=== PATIENT | female | born 1980 | race Caucasian/White ===

== ENCOUNTER 2025-02-02 15:20 | Emergency (ER) | payer MEDICAID, SELFPAY ==
[2025-02-02 15:39] VITALS: BP 132/80; PULSE 108; RESP 26; TEMP 36.4; O2SAT 97; BMI 42.5
--- NOTE | 2025-02-02 15:52 | XR_ITS ---
Examination: PA lateral chest 2 views TECHNIQUE: Upright PA lateral chest 2 views Date and time: February 12, 2025 1555 hours Comparison July 05, 2018 INDICATIONS: Chest pain weakness beginning 2 days ago. FINDINGS: Normal heart size. Lungs are clear. The osseous structures are intact IMPRESSION: No active disease
--- NOTE | 2025-02-02 15:52 | EKG_ITS ---
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
--- NOTE | 2025-02-02 15:53 | PD.EDRME ---
Rapid Medical Screening Exam RME Arrival date/time: 02/02/25 15:20 44-year-old female with a history of hypothyroidism presents to the emergency room with a chief complaint of palpitations, chest pain, weakness x 3 days I have greeted and performed a focused initial assessment of this patient. A comprehensive ED assessment and evaluation of the patient, analysis of all test results, and completion of the medical decision making process will be conducted by additional ED providers. Chief Complaint: Anxiety Time Seen by Provider: 02/02/25 15:29 Vital signs: Vital Signs Temperature 97.5 F 02/02/25 15:39 Pulse Rate 108 H 02/02/25 15:39 Respiratory Rate 26 H 02/02/25 15:39 Blood Pressure 132/80 H 02/02/25 15:39 Pulse Oximetry (%) 97 02/02/25 15:39 Oxygen Delivery Method Room Air 02/02/25 15:39 Vital signs reviewed by provider: Yes
[2025-02-02 16:57] LABS: Basophils # (Auto) 0.1 Thou/mm3 (0.0-0.2); Basophils % (Auto) 1 % (0-2.5); Eosinophils # (Auto) 0.0 Thou/mm3 (0.0-0.5); Eosinophils % (Auto) 1 % (0-10); Hematocrit 27.7 % (36.0-46.0); Immature Granulocytes Auto 0.01 Thou/mm3 (0.00-0.00); Lymphocytes # (Auto) 0.5 Thou/mm3 (1.0-4.8); Lymphocytes % (Auto) 13 % (10-50); Mean Corpuscular HGB Conc 30.7 g/dl (31.0-37.0); Mean Corpuscular Hemoglobin 26.0 pg (25.0-35.0); Mean Corpuscular Volume 85 fL (80-100); Monocytes # (Auto) 0.2 Thou/mm3 (0.0-0.8); Monocytes % (Auto) 4 % (0-12); Neutrophils # (Auto) 3.1 Thou/mm3 (1.8-7.7); Neutrophils % (Auto) 80 % (37-80); Nucleated Red Blood Cell # 0.00 Thou/mm3 (0.00-0.00); Nucleated Red Blood Cell % 0 /100 WBC (0); Platelet Count 231 Thou/mm3 (140-440); RDW Standard Deviation 43.9 fL (36.4-46.3); Red Blood Count 3.27 Miln/mm3 (4.00-5.20); White Blood Count 3.8 Thou/mm3 (3.6-11.0)
[2025-02-02 16:58] LABS: Hemoglobin 8.5 g/dL (12.0-16.0)
[2025-02-02 17:10] LABS: INR 1.1 (0.9-1.3); Partial Thromboplastin Time 24.2 Seconds (22.0-36.0); Prothrombin Time 12.0 Seconds (9.0-12.2)
[2025-02-02 17:11] LABS: B-Type Natriuretic Peptide 41 pg/mL (0-100)
[2025-02-02 17:24] LABS: Alanine Aminotransferase 8 U/L (10-49); Albumin, Serum 3.9 gm/dL (3.5-5.0); Albumin/Globulin Ratio 1.4 (1.2-2.2); Alkaline Phosphatase 67 U/L (46-116); Anion Gap 13 (7-16); Aspartate Amino Transferase 18 U/L (0-34); BUN/Creatinine Ratio 9 Ratio (12-20); Bilirubin,Total 1.0 mg/dL (0.3-1.2); Blood Urea Nitrogen 9 mg/dL (9-23); Calcium 8.9 mg/dL (8.3-10.6); Calcium (Corrected) 9.0 mg/dL (8.5-10.1); Carbon Dioxide 24.1 mMol/L (20.0-31.0); Chloride 100 mMol/L (98-107); Creatinine (Component) 1.0 mg/dL (0.6-1.3); Estimated Creatinine Clearance 101.0 mL/min (>60); Globulin 2.7 gm/dL (2.3-3.5); Glucose 90 mg/dL (74-106); Magnesium 2.0 mg/dL (1.6-2.6); Osmolality,Calculated 272 (275-295); Potassium 2.9 mMol/L (3.4-5.1); Sodium 137 mMol/L (136-145); Total Protein 6.6 gm/dL (5.7-8.2); Troponin I < 0.020 ng/mL (0.0-0.045); eGFR > 60 See Note
[2025-02-02 18:17] LABS: Collection Type, Urine Clean Catch
[2025-02-02 18:40] LABS: Bilirubin,Urine Negative (Negative); Blood,Urine Negative (Negative); Clarity,Urine Clear (Clear/Hazy); Color,Urine Yellow (Lt Yel-Yel); Glucose, Urine Negative (Negative); Hyaline Casts,Urine < 1 /hpf (0-1); Ketones,Urine Trace (Negative); Leukocyte Esterase,Urine Positive (Negative); Nitrite,Urine Negative (Negative); PH,Urine 6.0 (5.0-7.0); Protein,Urine Trace (Neg - Trace); RBC,Urine 1 /hpf (0-3); Specific Gravity,Urine 1.024 (1.001-1.035); Squamous Epithelial Cell,Urine 10 /hpf (0-5); Urobilinogen,Urine 2.0 mg/dL (0.0-1.0); WBC,Urine 4 /hpf (0-5)
[2025-02-02 18:53] LABS: Amphetamine/Methamp Scrn,U Negative (Negative); Barbiturate Screen,Urine Negative (Negative); Benzodiazepines Screen,Urine Positive (Negative); Benzoylecgonine Screen, Ur Negative (Negative); Fentanyl Screen,Urine Negative (Negative); Opiate Screen,Urine Negative (Negative); THC Screen,Urine Negative (Negative)
--- NOTE | 2025-02-02 19:29 | PD.EDANX ---
ED Anxiety RME/HPI General Chief Complaint: Anxiety Stated Complaint: Very anxious, SOB Time Seen by Provider: 02/02/25 15:29 Arrival date/time: 02/02/25 15:20 RME / HPI RME / HPI narrative: 44-year-old female patient with significant history of hypothyroidism, morbid obesity, came in for evaluation regarding dyspnea on exertion, palpitation on exertion, generalized weakness, and chest discomfort. This been ongoing for the last 3 days. Severity of symptoms moderate. Patient denies any vomiting, denies any blood in the stool. Related Data Home Medications ?Medication ?Instructions ?Recorded ?Confirmed levetiracetam 500 mg tablet 500 mg PO BID #0 tabs 05/23/17 07/05/18 (Keppra) omeprazole 20 mg capsule,delayed 20 mg PO QDAY ##0 05/23/17 07/05/18 release sertraline 100 mg tablet (Zoloft) 150 mg PO HS #0 tabs 05/23/17 07/05/18 Previous Rx's ?Medication ?Instructions ?Recorded cyclobenzaprine 5 mg tablet 5 mg PO TID PRN muscle spasm #14 07/05/18 tabs clindamycin HCl 300 mg capsule 300 mg PO TID #30 caps 08/23/18 tramadol 50 mg tablet 50 mg PO Q6H #14 tabs 08/23/18 ferrous sulfate, dried 160 mg (50 160 mg PO TID #90 tabs 02/02/25 mg iron) tablet,extended release potassium chloride 20 mEq oral 20 meq PO QDAY #7 ea 02/02/25 packet Allergies Allergy/AdvReac Type Severity Reaction Status Date / Time codeine Allergy Severe RASH Verified 02/02/25 15:25 Sulfa (Sulfonamide Allergy Severe RASH Verified 02/02/25 15:25 Antibiotics) ciprofloxacin AdvReac Severe ABD PAIN, Verified 02/02/25 15:25 BLOATING ibuprofen AdvReac Severe CONTRAINDICATED Verified 02/02/25 15:25 DUE TO GASTRIC BYPASS Review of Systems Review of Systems Narrative Review of Systems: Review of system reviewed and within normal limits except mentioned in HPI ED Exam Narrative Physical exam: VITAL SIGNS: Reviewed. Physical exam was not done patient is already very upset does not want to be touch Course Quality Measures none Orders Category Date Time Status EKG (ED ONLY) *Do not use* NOW Care 02/02/25 15:52 Completed EKG (ED Only) Stat Exams 02/02/25 15:52 Draft XR chest 2V Stat Exams 02/02/25 15:52 Completed B-Type Natriuretic Peptide Stat Lab 02/02/25 16:44 Completed CBC Stat Lab 02/02/25 16:44 Completed Comprehensive Metabolic Panel Stat Lab 02/02/25 16:44 Completed Drug Screen,Urine Stat Lab 02/02/25 17:50 Completed Magnesium Stat Lab 02/02/25 16:44 Completed Partial Thromboplastin Time Stat Lab 02/02/25 16:44 Completed Prothrombin Time with INR Stat Lab 02/02/25 16:44 Completed Troponin I Stat Lab 02/02/25 16:44 Completed Urinalysis Stat Lab 02/02/25 17:50 Completed Potassium Chloride [K-Dur] Med 02/02/25 19:21 Discontinued 40 meq PO X1 ONE Vital Signs Vital signs: Vital Signs Temperature 97.5 F 02/02/25 15:39 Pulse Rate 108 H 02/02/25 15:39 Respiratory Rate 26 H 02/02/25 15:39 Blood Pressure 132/80 H 02/02/25 15:39 Pulse Oximetry (%) 97 02/02/25 15:39 Oxygen Delivery Method Room Air 02/02/25 15:39 Anxiety MDM Narrative MDM Narrative: 44-year-old female patient with significant history of hypothyroidism, morbid obesity, came in for evaluation regarding dyspnea on exertion, palpitation on exertion, generalized weakness, and chest discomfort. This been ongoing for the last 3 days. Severity of symptoms moderate. Patient denies any vomiting, denies any blood in the stool. Patient CBC showed hemoglobin of 8.5. Hematocrit of 27.7. Patient potassium was noted to be 2.9 urinalysis no UTI. Tested positive benzo. Patient chest x-ray came back with no acute pathology. EKG showed normal sinus rhythm, ventricular rate of 98 bpm, no ST segment elevation or depression noted. I discussed patient's finding of her CBC results which could be the reason for her dyspnea on exertion palpitation on exertion and chest discomfort that is related to her hemoglobin of 8.5. Patient is upset and does not believe that her symptoms is related to her hemoglobin of 8.5. I explained to her that there is no need to do emergency transfusion at this time because our cutoff is 7.0. Patient is more upset. I told her that I am going to send her home on iron supplement. Patient was also given potassium replacement for potassium of 2.9. Physical examination was not done since patient is upset and does not want to be touched. SHe told me that she wanted to be discharged right away. FARHAN Gallardo was with me during the entire conversation with the patient. She took her potassium replacement in the ED I discharged her on potassium 20 mEq daily for 7 days and ferrous sulfate 1 tablet 3 times daily for 30 days. Patient was also advised to closely follow-up with her PCP. In 1 to 2 days. Patient data External records reviewed:: None Clinical information provided by:: patient Social determinants that could affect healthcare access:: none Patient has the following chronic illnesses:: History of anxiety, history of anemia How is presenting disease/condition affected by chronic disease/condition?: exacerbated by Evaluation data The following diagnostics were reviewed and interpreted by me:: lab results, radiology exam(s) and EKG tracing(s) Lab and/or radiology exams considered but not ordered:: None Interpretation Summary: See results MDM Medications / Prescriptions Medications or Prescriptions considered but not ordered:: None Medication administrations:: Medication Administration History Discontinued Medications Potassium Chloride (Potassium Chloride 20 Meq Tabcr) 40 meq PO X1 ONE Stop: 02/02/25 19:22 Consultations Consultation(s) initiated? (list below): No Diagnosis Differential diagnosis anxiety: hyperventilation, panic disorder and other (Anemia, dyspnea exertion, palpitation) Most likely diagnosis given after review of the tests above:: Anemia, dyspnea on exertion, palpitation, anxiety Admission Indicated Admission indicated?: not indicated Admission Request Was there a request for admission?: No Disposition Plan Disposition Plan: Discharge Discharge Attestation Discharge Attestation: Patient condition: Stable Discharge Plan Plan Patient Disposition: HOME (Self Care) Discharge Disposition comment: Stable Prescriptions/Referrals Prescriptions/Med Rec: New ferrous sulfate, dried 160 mg (50 mg iron) tablet extended release 160 mg PO TID Qty: 90 0RF potassium chloride 20 mEq packet 20 meq PO QDAY Qty: 7 0RF No Action levetiracetam [Keppra] 500 MG tablet 500 mg PO BID Qty: 0 sertraline [Zoloft] 100 MG tablet 150 mg PO HS Qty: 0 omeprazole 20 MG capsule,delayed release(DR/EC) 20 mg PO QDAY Qty: 0 cyclobenzaprine 5 mg tablet 5 mg PO TID PRN (Reason: muscle spasm) Qty: 14 0RF clindamycin HCl 300 mg capsule 300 mg PO TID Qty: 30 0RF tramadol 50 mg tablet 50 mg PO Q6H Qty: 14 0RF Referrals: No Primary/Family,Physician [Primary Care Provider] - In 1 week Problem List Clinical Impression: Anemia, Palpitation, Hypokalemia Patient/Caregiver Discharge Instructions Discharge Activity: activity as tolerated Education Materials: Anemia Additional Instructions: Thank you for the opportunity for serving you today. You are stable for discharged . You are advised to: Follow-up with your PCP in 1 to 2 days Return to ED for worsening of symptoms Take medication as prescribed Print Language: Lao Stand Alone Forms: [facility] Info., Patient Portal Info Letter
[2025-02-02 19:35] VITALS: BP 149/77; PULSE 93; RESP 20; TEMP 36.8; O2SAT 100
== END 2025-02-02 20:04 | disposition home or self-care (01) ==
PROVIDERS: Nurse Practitioner Family; Emergency Provider Emergency Medicine
DX: D64.9 Anemia, unspecified (principal); R00.2 Palpitations; E87.6 Hypokalemia; R07.9 Chest pain, unspecified; R53.1 Weakness; R94.31 Abnormal electrocardiogram [ECG] [EKG]
CPT/HCPCS: 36415; 71046; 80053; 80307; 81001; 83735; 83880; 84484; 85025; 85610; 85730; 93005; 99284; A9270

== ENCOUNTER 2025-04-04 20:03 | Inpatient (IN) | payer MEDICAID, SELFPAY ==
[2025-04-04 20:04] VITALS: BP 128/62; PULSE 88; RESP 18; TEMP 36.4; O2SAT 97
--- NOTE | 2025-04-04 20:04 | PD.EDBACK ---
ED Back Injury Pain RME/HPI General Stated Complaint: FLANK PAIN Arrival date/time: 04/04/25 20:03 RME / HPI RME / HPI Narrative: See [facility] for Dr. Burch's HPI documentation. Related Data Home Medications ?Medication ?Instructions ?Recorded ?Confirmed levetiracetam 500 mg tablet 500 mg PO BID #0 tabs 05/23/17 07/05/18 (Keppra) omeprazole 20 mg capsule,delayed 20 mg PO QDAY ##0 05/23/17 07/05/18 release sertraline 100 mg tablet (Zoloft) 150 mg PO HS #0 tabs 05/23/17 07/05/18 Previous Rx's ?Medication ?Instructions ?Recorded cyclobenzaprine 5 mg tablet 5 mg PO TID PRN muscle spasm #14 07/05/18 tabs clindamycin HCl 300 mg capsule 300 mg PO TID #30 caps 08/23/18 tramadol 50 mg tablet 50 mg PO Q6H #14 tabs 08/23/18 ferrous sulfate, dried 160 mg (50 160 mg PO TID #90 tabs 02/02/25 mg iron) tablet,extended release potassium chloride 20 mEq oral 20 meq PO QDAY #7 ea 02/02/25 packet Allergies Allergy/AdvReac Type Severity Reaction Status Date / Time codeine Allergy Severe RASH Verified 02/02/25 15:25 Sulfa (Sulfonamide Allergy Severe RASH Verified 02/02/25 15:25 Antibiotics) ciprofloxacin AdvReac Severe ABD PAIN, Verified 02/02/25 15:25 BLOATING ibuprofen AdvReac Severe CONTRAINDICATED Verified 02/02/25 15:25 DUE TO GASTRIC BYPASS Review of Systems Review of Systems Systems Reviewed: All systems reviewed, normal except as documented Past Medical History Social History SMOKING STATUS: Current every day smoker ED Exam Narrative Physical exam: See [facility] for Dr. Burch's physical exam documentation. Course Quality Measures none Back Pain / Injury MDM Narrative [facility] Narrative:: This section includes all my notes and documentations, including HPI, PE, and ED course. Yosef Burch MD HPI: 45yo female BIBA from home here with ROS: All negative except as documented in HPI. Physical Exam: General: Alert and oriented. No acute distress when remaining still. Eyes: Conjunctivae and lids clear. ENT: No nasal congestion. Neck: Supple. Heart: RRR. Lungs: No respiratory distress. Good air movement. No rhonchi, wheezing, rales. Abdomen: Soft and nontender. Normal bowel sounds. No distension. No rebound or guarding. Back: No CVA tenderness. Skin: Warm and dry. Neuro: Alert and oriented X 3. I reviewed EMS notes. I reviewed all diagnostic test results. My interpretation of the EKG is My interpretation of the chest x-ray is My review of the CT report is Blood tests and urine tests At this point, diagnoses include Treatment here included Significant improvement Not yet done: I discussed the case with our hospitalist. About the presentation and exam and diagnostics and treatments here. And need of further care in the hospital. Will accept the patient. Not yet done: Based on my best medical judgment, made decision no further evaluation or treatment indicated at this time. Patient understands and agrees to the discharge instructions customized and printed, see below. Yosef Burch MD Patient data External records reviewed:: [facility] previous records (Per chart review, patient was seen here on for anemia.) Clinical information provided by:: patient Social determinants that could affect healthcare access:: none Patient has the following chronic illnesses:: none How is presenting disease/condition affected by chronic disease/condition?: no chronic disease Evaluation data The following diagnostics were reviewed and interpreted by me:: lab results and radiology exam(s) Lab and/or radiology exams considered but not ordered:: none Medications / Prescriptions Medications or Prescriptions considered but not ordered:: none Discharge Plan Prescriptions/Referrals Prescriptions/Med Rec: No Action levetiracetam [Keppra] 500 MG tablet 500 mg PO BID Qty: 0 sertraline [Zoloft] 100 MG tablet 150 mg PO HS Qty: 0 omeprazole 20 MG capsule,delayed release(DR/EC) 20 mg PO QDAY Qty: 0 cyclobenzaprine 5 mg tablet 5 mg PO TID PRN (Reason: muscle spasm) Qty: 14 0RF clindamycin HCl 300 mg capsule 300 mg PO TID Qty: 30 0RF tramadol 50 mg tablet 50 mg PO Q6H Qty: 14 0RF ferrous sulfate, dried 160 mg (50 mg iron) tablet extended release 160 mg PO TID Qty: 90 0RF potassium chloride 20 mEq packet 20 meq PO QDAY Qty: 7 0RF Patient/Caregiver Discharge Instructions Print Language: Niuean
--- NOTE | 2025-04-04 20:10 | PD.EDSOB ---
ED SOB =RME/HPI General Chief Complaint: General Adult/Misc Complain Stated Complaint: FLANK PAIN Time Seen by Provider: 04/04/25 20:26 Arrival date/time: 04/04/25 20:03 RME / HPI RME / HPI Narrative: See [facility] for Dr. Burch's HPI documentation. Related Data Home Medications ?Medication ?Instructions ?Recorded ?Confirmed levetiracetam 500 mg tablet 500 mg PO BID #0 tabs 05/23/17 07/05/18 (Keppra) omeprazole 20 mg capsule,delayed 20 mg PO QDAY ##0 05/23/17 07/05/18 release sertraline 100 mg tablet (Zoloft) 150 mg PO HS #0 tabs 05/23/17 07/05/18 Previous Rx's ?Medication ?Instructions ?Recorded cyclobenzaprine 5 mg tablet 5 mg PO TID PRN muscle spasm #14 07/05/18 tabs clindamycin HCl 300 mg capsule 300 mg PO TID #30 caps 08/23/18 tramadol 50 mg tablet 50 mg PO Q6H #14 tabs 08/23/18 ferrous sulfate, dried 160 mg (50 160 mg PO TID #90 tabs 02/02/25 mg iron) tablet,extended release potassium chloride 20 mEq oral 20 meq PO QDAY #7 ea 02/02/25 packet Allergies Allergy/AdvReac Type Severity Reaction Status Date / Time codeine Allergy Severe RASH Verified 02/02/25 15:25 Sulfa (Sulfonamide Allergy Severe RASH Verified 02/02/25 15:25 Antibiotics) ciprofloxacin AdvReac Severe ABD PAIN, Verified 02/02/25 15:25 BLOATING ibuprofen AdvReac Severe CONTRAINDICATED Verified 02/02/25 15:25 DUE TO GASTRIC BYPASS Review of Systems Review of Systems Systems Reviewed: All systems reviewed, normal except as documented ED Exam Narrative Physical exam: See [facility] for Dr. Burch's physical exam documentation. Course Course Course Narrative: CXR is ordered for determining the etiology of shortness of breath. Quality Measures none Orders Category Date Time Status Bedside COVID-19 Antigen Test NOW Care 04/04/25 20:12 Active COVID-19 Screening Questionnaire NOW Care 04/05/25 01:[address] Screening NOW Care 04/04/25 20:13 Active Decision to Admit X1 Care 04/05/25 01:16 Active EKG (ED ONLY) *Do not use* NOW Care 04/04/25 20:13 Completed Sotomayor [Urinary Catheter] QS Care 04/04/25 21:17 Active Saline [Insert IV] NOW Care 04/04/25 20:12 Active Transfuse,blood/blood products NOW Care 04/04/25 21:16 Active Consult to Gastroenterology Stat Cons 04/05/25 01:[address] abdomen pelvis w con Stat Exams 04/04/25 20:[address] angio chest Stat Exams 04/04/25 20:13 Completed EKG (ED Only) Stat Exams 04/04/25 20:13 Draft US venous doppler LE BI Stat Exams 04/04/25 20:13 Completed XR chest 1V portable Stat Exams 04/04/25 20:13 Completed BNP [B-Type Natriuretic Peptide] Stat Lab 04/04/25 20:25 Completed Bilirubin,Direct Stat Lab 04/04/25 20:25 Completed CBC Stat Lab 04/04/25 20:25 Completed CMP [Comprehensive Metabolic Panel] Stat Lab 04/04/25 20:25 Completed D-Dimer Stat Lab 04/04/25 20:25 Completed HCG,Qualitative Serum Stat Lab 04/04/25 20:25 Completed Influenza A & B Rapid Panel Stat Lab 04/04/25 20:12 Ordered Lipase Stat Lab 04/04/25 20:25 Completed Magnesium Stat Lab 04/04/25 20:25 Completed Path Review Blood Smear Stat Lab 04/04/25 20:25 Completed TSH [Thyroid Stimulating Hormone] Stat Lab 04/04/25 20:25 Completed Troponin I Stat Lab 04/04/25 20:25 Completed Type and Screen Stat Lab 04/04/25 21:44 Results UA, C/S IF [Urinalysis, C/S if Indicated] Stat Lab 04/04/25 21:19 Completed VBG [Venous Blood Gas] Stat Lab 04/04/25 20:25 Completed prbc [Red Blood Cells] Stat Lab 04/04/25 21:44 Results Dextrose 5%-Lactated Ringers [D5-Lr] 1,000 ml Med 04/05/25 00:29 Active IV 200 mls/hr Famotidine Inj [Pepcid Inj] Med 04/05/25 01:02 Discontinued 20 mg IVP X1 ONE HYDROmorphone INJ [Dilaudid Inj] Med 04/05/25 00:09 Discontinued 1 mg IVP X1 ONE Morphine* Inj Med 04/04/25 20:12 Discontinued 4 mg IV X1 ONE Ondansetron Inj [Zofran Inj] Med 04/04/25 20:12 Discontinued 4 mg IVP X1 ONE Pantoprazole Inj [Protonix Inj] Med 04/05/25 01:02 Discontinued 80 mg IVP X1 ONE Vital Signs Vital signs: Vital Signs Temperature 97.5 F 04/04/25 20:04 Pulse Rate 88 04/04/25 20:04 Respiratory Rate 18 04/04/25 20:04 Blood Pressure 128/62 04/04/25 20:04 Pulse Oximetry (%) 97 04/04/25 20:04 Oxygen Delivery Method Room Air 04/04/25 20:04 Shortness of Breath / Dyspnea MDM Narrative MDM Narrative:: This section includes all my notes and documentations, including HPI, PE, and ED course. Yosef Burch MD HPI: 45-year-old female here with about a month history of worsening dyspnea and fatigue and malaise. Reports severe shortness of breath even walking a few steps now. She also reports nausea and abdominal pain and dark stools and leg swelling. Just prior to arrival, she had a mechanical fall due to fatigue and malaise. She landed on her back. No head injury. No loss of consciousness. No hematemesis or coffee-ground emesis. No bright red blood in stools. No other complaints. ROS: All negative except as documented in HPI. Physical Exam: General:? Alert and oriented.? Appears pale. Eyes:? Conjunctivae and lids clear.? EOMI.? PERRL. ENT:? No signs of head trauma. Neck:? Supple.? No tenderness. Heart:? RRR. Lungs:? No respiratory distress.? Good air movement.? No rhonchi, wheezing, rales.? Chest:? No tenderness. Abdomen:? Soft with diffuse tenderness, difficult to localize.? Normal bowel sounds.? No distension.? No rebound or guarding.? Back:? No tenderness.? Skin:? Warm and dry.? Neuro:? Alert and oriented X 3.? Cranial Nerves II-XII grossly intact.? No peripheral motor deficits. Musculoskeletal:? All major joints and bones are not tender with no limited ROM. Rectal: Guaiac positive. I reviewed EMS notes. I reviewed all diagnostic test results. My interpretation of the EKG is sinus rhythm with nonspecific ST-T changes. My interpretation of the chest x-ray is infiltrates. My review of the BLE US report is no DVT. My review of the CTA chest report is pneumonia. My review of the CT abdomen pelvis report is hepatosplenomegaly. Blood/urine tests are remarkable for WBC 2.5, Hgb 6.2, Glucose 66, D-dimer 295. COVID negative. Influenza pending. At this point, diagnoses include: Severe anemia GI bleed Pneumonia Treatment here included: Dilaudid 1 mg IV Morphine 4 mg IV Zofran 4 mg IV D5-LR 1 L Rocephin 1 g IV Zithromax 500 mg IV 2 units of pRBC ordered Famotidine 20 mg IV Protonix 80 mg IV I discussed the case with our rn perinatal, Dr. Jose, and our hospitalist. About the presentation and exam and diagnostics and treatments here. And need of further care in the hospital. Will accept the patient. Yosef Burch MD Patient data External records reviewed:: [facility] previous records (Per chart review, patient was seen here on 02/02/25 for anemia.) and EMS form Clinical information provided by:: patient and EMS Social determinants that could affect healthcare access:: none Patient has the following chronic illnesses:: none How is presenting disease/condition affected by chronic disease/condition?: no chronic disease Evaluation data The following diagnostics were reviewed and interpreted by me:: lab results, radiology exam(s) and EKG tracing(s) (My interpretation of the EKG is: Sinus rhythm (83 bpm) with nonspecific ST-T changes. Yosef Burch MD) Lab and/or radiology exams considered but not ordered:: none Interpretation Summary: I reviewed all diagnostic test results. My interpretation of the EKG is sinus rhythm with nonspecific ST-T changes. My interpretation of the chest x-ray is infiltrates. My review of the BLE US report is no DVT. My review of the CTA chest report is pneumonia. My review of the CT abdomen pelvis report is hepatosplenomegaly. Blood/urine tests are remarkable for WBC 2.5, Hgb 6.2, Glucose 66, D-dimer 295. COVID negative. Influenza pending. Medications / Prescriptions Medications or Prescriptions considered but not ordered:: none Medication administrations:: Medication Administration History Acetaminophen (Acetaminophen 325 Mg Tablet) 650 mg PO Q6H PRN PRN Reason: Fever >100.4 Stop: 05/05/25 02:25 Acetaminophen (Acetaminophen 325 Mg Tablet) 650 mg PO Q6H PRN PRN Reason: PAIN SCALE 1-3 (mild Stop: 05/05/25 02:25 Dextrose/Lactated Ringer's (D5-Lr) 1,000 mls @ 200 mls/hr IV .Q5H ONE Stop: 04/05/25 05:28 Last Admin: 04/05/25 01:35 Dose: 200 mls/hr Documented By: EE Ceftriaxone Sodium/Dextrose (Rocephin/D5w 1gm Iv Premix) 50 mls @ 100 mls/hr IV X1 ONE Stop: 04/05/25 03:58 Azithromycin 500 mg/ Sodium (Chloride) 250 mls @ 250 mls/hr IV X1 ONE Stop: 04/05/25 04:28 Morphine Sulfate (Morphine Sulf Inj 4 Mg/Ml Vial) 2 mg IVP Q4HR PRN PRN Reason: Pain Scale 6-10 (Severe Stop: 04/10/25 02:25 Ondansetron HCl (Ondansetron Inj 2 Mg/Ml Inj 2 Ml) 4 mg IVP Q6H PRN; Protocol PRN Reason: NAUSEA OR VOMITING Stop: 05/05/25 02:25 Pantoprazole Sodium (Pantoprazole Inj 40 Mg Vial) 40 mg IVP BID DREW Stop: 05/05/25 08:59 Sennosides (Senna Tablet) 1 tab PO QDAY PRN; Protocol PRN Reason: constipation Stop: 05/05/25 02:25 Discontinued Medications Famotidine (Famotidine Inj 10 Mg/Ml Vial 2 Ml) 20 mg IVP X1 ONE Stop: 04/05/25 01:03 Last Admin: 04/05/25 01:40 Dose: 20 mg Documented By: EE Hydromorphone HCl (Hydromorphone Inj 2 Mg/Ml Vial) 1 mg IVP X1 ONE Stop: 04/05/25 00:10 Last Admin: 04/05/25 00:26 Dose: 1 mg Documented By: EE Morphine Sulfate (Morphine Sulf Inj 4 Mg/Ml Vial) 4 mg IV X1 ONE Stop: 04/04/25 20:13 Last Admin: 04/04/25 20:49 Dose: 4 mg Documented By: EE Ondansetron HCl (Ondansetron Inj 2 Mg/Ml Inj 2 Ml) 4 mg IVP X1 ONE; Protocol Stop: 04/04/25 20:13 Last Admin: 04/04/25 20:50 Dose: 4 mg Documented By: EE Pantoprazole Sodium (Pantoprazole Inj 40 Mg Vial) 80 mg IVP X1 ONE Stop: 04/05/25 01:03 Last Admin: 04/05/25 01:40 Dose: 80 mg Documented By: EE Treatment here included: Dilaudid 1 mg IV Morphine 4 mg IV Zofran 4 mg IV D5-LR 1 L Rocephin 1 g IV Zithromax 500 mg IV 2 units of pRBC ordered Famotidine 20 mg IV Protonix 80 mg IV Consultations Consultation(s) initiated? (list below): Yes Consultation #1 (Physician, Specialty, Details): I discussed the case with our rn perinatal, Dr. Jose, and our hospitalist. About the presentation and exam and diagnostics and treatments here. And need of further care in the hospital. Will accept the patient. Diagnosis Shortness of Breath Differential Diagnosis: acute exacerbation of chronic obstructive airways disease, congestive heart failure, community acquired pneumonia, asthma with exacerbation and pulmonary embolism Most likely diagnosis given after review of the tests above:: Severe anemia GI bleed Pneumonia Admission Indicated Admission indicated?: indicated Explain why admission is indicated or not indicated:: Severe anemia GI bleed Pneumonia Admission Request Was there a request for admission?: Yes Admission Attestation Admission request attestation: Discussed case with Hospitalist service regarding admission. Discussed patients ED course, exam findings, labs, and radiology results. Agreed to accept the patient for admission. Disposition Plan Disposition Plan: Admit Discharge Plan Plan Patient Disposition: Admit Acute Care w/in Hospital Problem List Clinical Impression: Severe anemia, GI bleed, Pneumonia
--- NOTE | 2025-04-04 20:13 | XR_ITS ---
EXAMINATION: AP chest single view TECHNIQUE: AP portable upright chest single view Date and time: April 04, 2025, 2045 hours, comparison February 02, 2025 1607 hours INDICATIONS: Shortness of breath today FINDINGS: Minor prominence left ventricle Minimal ectasia thoracic aorta. Mild vascular congestion. Mild to moderate elevation right hemidiaphragm. No pneumonia or pulmonary edema IMPRESSION: Mild vascular congestion
--- NOTE | 2025-04-04 20:13 | XR_ITS ---
Examination: CT abdomen with intravenous contrast CT pelvis with intravenous contrast 2-D coronal reconstructions 2-D sagittal reconstructions Date and time of exam: April 04, 2025, 11:28 p.m. INDICATIONS: Flank pain back pain today. CTDI: vol (mGy) 53.4 DLP: (mGycm) 1552 Technique: Multiple axial sections of the abdomen and pelvis have been obtained. 64 slice high-resolution scanner used. 3 mm axial sections have been obtained, post intravenous injection 100 cc Isovue-370 2-D sagittal, coronal reconstructions obtained. Low dose protocols were performed. One or more of the following dose reduction techniques were used; automated exposure control, adjustment of the mA and/or KV according to patient size, use of iterative reconstruction technique. Findings: Hepatosplenomegaly, liver 18 cm, spleen 14.5 cm Absent gallbladder No biliary tract dilatation No pancreatic or adrenal mass Bilateral 1 to 3 mm renal calculi No hydronephrosis or ureteral calculi 8 mm fat-containing umbilical hernia Normal appendix No bowel obstruction No diverticulitis Anteverted atrophic uterus Urinary bladder contracted around a Sotomayor catheter with urinary bladder wall thickening up to 5 mm Moderate osteopenia IMPRESSION: Hepatosplenomegaly Numerous bilateral nonobstructing renal calculi, no hydronephrosis or ureteral calculi Normal appendix Cystitis pattern
--- NOTE | 2025-04-04 20:13 | XR_ITS ---
Examination: Venous duplex lower extremity sonogram, bilateral. Date and time of exam: April 04, 2025, 2122 hours INDICATIONS: Bilateral leg swelling and weakness today, elevated D-dimer Technique: Multiple sonographic images of the deep venous system have been obtained. B-mode/2-D grayscale imaging of vascular structures and Doppler spectral analysis (waveforms) and color performed Both legs are examined. Findings: Deep venous systems do not demonstrate abnormal echogenicity. No diagnostic visualization bilateral posterior tibial veins All visualized deep veins exhibit compressibility. All visualized deep veins exhibit augmentation. Impression: No DVT demonstrated
--- NOTE | 2025-04-04 20:13 | XR_ITS ---
Examination: CTA chest with intravenous contrast 2-D reconstructions 3-D reconstructions, vascular Date and time of exam: April 04, 2025, 11:28 p.m. INDICATIONS: Chest pain shortness of breath today CTDI: vol (mGy) 11.9 DLP: (mGycm) 394 Technique: Multiple axial sections of the thorax have been obtained. 3 mm slice thickness, from below the hemidiaphragms to above the apices of the lungs. Mediastinal and lung density settings have been obtained. 2-D sagittal and coronal reconstructions. 3-D angiographic renderings, 3-D volume renderings, 3D post processing, vascular maximum intensity projections obtained. Contrast administered is 100 cc Isovue-370. Low dose protocols were performed. One or more of the following dose reduction techniques were used; automated exposure control, adjustment of the mA and/or KV according to patient size, use of iterative reconstruction technique. Findings: No thoracic aortic aneurysm dilatation or dissection No pulmonary artery filling defects No paratracheal tracheobronchial or bronchopulmonary adenopathy Soft nodular densities left lower lobe consistent with early pneumonia No pleural disease No pulmonary edema IMPRESSION: Negative for pulmonary artery emboli No mediastinal lymphadenopathy Soft nodular densities in the left lower lobe consistent with early pneumonia
--- NOTE | 2025-04-04 20:13 | EKG_ITS ---
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
[2025-04-04 20:29] VITALS: PULSE 80; RESP 16; O2SAT 100; BMI 47.1
[2025-04-04 20:34] LABS: Base Excess, Venous 1 (-3-3); O2 Saturation, Venous 70 % (96-97); PCO2, Venous 39 mmHg (36-56); PO2, Venous 37 mmHg (15-58); pH, Venous 7.43 (7.33-7.66)
[2025-04-04 20:43] LABS: Basophils # (Auto) 0.0 Thou/mm3 (0.0-0.2); Basophils % (Auto) 1 % (0-2.5); Eosinophils # (Auto) 0.0 Thou/mm3 (0.0-0.5); Eosinophils % (Auto) 0 % (0-10); Hematocrit 20.4 % (36.0-46.0); Immature Granulocytes Auto 0.01 Thou/mm3 (0.00-0.00); Lymphocytes # (Auto) 0.6 Thou/mm3 (1.0-4.8); Lymphocytes % (Auto) 23 % (10-50); Mean Corpuscular HGB Conc 30.4 g/dl (31.0-37.0); Mean Corpuscular Hemoglobin 25.6 pg (25.0-35.0); Mean Corpuscular Volume 84 fL (80-100); Monocytes # (Auto) 0.2 Thou/mm3 (0.0-0.8); Monocytes % (Auto) 7 % (0-12); Neutrophils # (Auto) 1.7 Thou/mm3 (1.8-7.7); Neutrophils % (Auto) 69 % (37-80); Nucleated Red Blood Cell # 0.00 Thou/mm3 (0.00-0.00); Nucleated Red Blood Cell % 0 /100 WBC (0); Platelet Count 217 Thou/mm3 (140-440); RDW Standard Deviation 48.4 fL (36.4-46.3); Red Blood Count 2.42 Miln/mm3 (4.00-5.20); White Blood Count 2.5 Thou/mm3 (3.6-11.0)
[2025-04-04 20:48] VITALS: BP 145/78; PULSE 85; RESP 14; O2SAT 99
[2025-04-04] MEDS: MORPHINE SULF INJ 4 MG/ML VIAL IV (20:49)
[2025-04-04] MEDS: ONDANSETRON INJ 2 MG/ML INJ 2 ML 4 MG IVP (20:50)
[2025-04-04 20:51] LABS: HCG,Qualitative Serum Negative
[2025-04-04 20:53] LABS: B-Type Natriuretic Peptide 92 pg/mL (0-100)
[2025-04-04 21:03] LABS: D-Dimer 295 ng/mL (<600)
[2025-04-04 21:07] LABS: Hemoglobin 6.2 g/dL (12.0-16.0)
[2025-04-04 21:10] LABS: Alanine Aminotransferase < 7 U/L (10-49); Albumin, Serum 2.9 gm/dL (3.5-5.0); Albumin/Globulin Ratio 1.3 (1.2-2.2); Alkaline Phosphatase 79 U/L (46-116); Anion Gap 9 (7-16); Aspartate Amino Transferase 10 U/L (0-34); BUN/Creatinine Ratio 9 Ratio (12-20); Bilirubin,Direct 0.4 mg/dL (0.0-0.3); Bilirubin,Total 0.9 mg/dL (0.3-1.2); Blood Urea Nitrogen 7 mg/dL (9-23); Calcium 8.4 mg/dL (8.3-10.6); Calcium (Corrected) 9.3 mg/dL (8.5-10.1); Carbon Dioxide 23.1 mMol/L (20.0-31.0); Chloride 105 mMol/L (98-107); Creatinine (Component) 0.8 mg/dL (0.6-1.3); Estimated Creatinine Clearance 132.6 mL/min (>60); Globulin 2.3 gm/dL (2.3-3.5); Glucose 66 mg/dL (74-106); Lipase 25 U/L (12-53); Magnesium 2.0 mg/dL (1.6-2.6); Osmolality,Calculated 269 (275-295); Potassium 4.3 mMol/L (3.4-5.1); Sodium 137 mMol/L (136-145); Thyroid Stimulating Hormone 1.89 uIU/mL (0.55-4.78); Total Protein 5.2 gm/dL (5.7-8.2); Troponin I < 0.002 ng/mL (0.0-0.045); eGFR > 60 See Note
[2025-04-04 21:54] LABS: Collection Type, Urine Clean Catch; Squamous Epithelial Cell,Urine 0 /hpf (0-5); WBC,Urine 0 /hpf (0-5)
[2025-04-04 22:12] LABS: Bilirubin,Urine Negative (Negative); Blood,Urine Negative (Negative); Clarity,Urine Clear (Clear/Hazy); Color,Urine Lt-Yellow (Lt Yel-Yel); Culture Indicated,Urine Not Indicated; Glucose, Urine Negative (Negative); Ketones,Urine Negative (Negative); Leukocyte Esterase,Urine Negative (Negative); Nitrite,Urine Negative (Negative); PH,Urine 7.0 (5.0-7.0); Protein,Urine Negative (Neg - Trace); RBC,Urine < 1 /hpf (0-3); Specific Gravity,Urine 1.014 (1.001-1.035); Urobilinogen,Urine Negative mg/dL (0.0-1.0)
[2025-04-04 22:39] VITALS: BP 135/70; PULSE 88; RESP 19; TEMP 37.3; O2SAT 100
[2025-04-05] VITALS (24 sets, daily range): BP systolic 104–151; BP diastolic 56–89; PULSE 70–96; RESP 12–25; TEMP 36.2–37.2; O2SAT 80–100; BMI 42.5; BMI 42.4
[2025-04-05] MEDS: HYDROmorphone INJ 2 MG/ML VIAL 1 MG IVP (00:26)
[2025-04-05] MEDS: DEXTROSE 5%-LACTATED RINGERS 1,000 ML 200 ML IV (01:35)
[2025-04-05] MEDS: FAMOTIDINE INJ 10 MG/ML VIAL 2 ML 20 MG IVP (01:40)
[2025-04-05 02:38] LABS: Path Review Blood Smear Sent to Pathologist
--- NOTE | 2025-04-05 03:22 | ESHP_ITS ---
<Statement entered by Amarjit Rivas MD - 04/06/25 06:01> I have discussed and was present for the essential components of the history, physical examination, diagnosis, and treatment plan with the resident. I agree with the patient's care as documented by the resident and amended herein by me. Amarjit Rivas MD FACP. Documentation for date of: 04/05/25 HPI History of Present Illness Chief complaint: Shortness of breath History of present illness: This is a 45 year old female with past medical history of Gastric sleeve surgery,seizures ,depression presented to the ED with complains of shortness of breath and swelling in legs. She has been having shortness of breath during exertion for 4 months associated with chest pain and palpitations. She denies any chest pain palpitations, tightness during rest. She denies paroxysmal nocturnal dyspnea. Her primary is Dr. Hernandez she says that she had an alert from her watch telling A-fib. In the process of referral to cardiology outpatient by her PCP. She has been noticing swelling in both legs since last 4 days which is gradually increasing. She complains of flank pain radiating to the groins since last 3 days. She describes pain 7 out of 10 on a pain scale which is continuous in nature and sensitive to any touch. She complains of occasional bleeding on vomiting. She endorses melena and red streaks in the stools. ED visit: Vitals BP 135/76 NH 89 resp 20 temperature 97.9 saturating 99% on room air. Pertinent labs are hemoglobin 6.2 hematocrit 20.4 total protein 5.[address] abdomen shows numerous bilateral nonobstructing renal calculi, EKG shows normal sinus rhythm. Venous Doppler and chest CTA looks normal Past medical history: Seizures on Keppra last seizures was in December follows her neurologist, depression on Zoloft. Past surgical history: Cholecystectomy in 2000 gastric bypass in 2002 Family history: Kidney problems in her maternal side and and heart disease in her father Allergic history: Allergic to ciprofloxacin and sulfa drugs. Review of Systems Review of Systems Systems Reviewed: All systems reviewed, normal except as documented Exam Vital Signs Temp Pulse Resp BP Pulse Ox O2 Del Method O2 Flow Rate 98.1 F 78 18 125/67 98 Room Air 97 04/05/25 02:28 04/05/25 02:28 04/05/25 02:28 04/05/25 02:28 04/05/25 02:28 04/04/25 22:39 04/05/25 00:19 Narrative Exam GENERAL: NAD, AAOx3 HEENT: Moist mucosa. Eyes open, symmetrical, & clear CARDIO: Rapid regular rhythm Noted. No Murmurs. PULM: No noted coughing/dyspnea CTA B/L, no R/W/R GI: Abdomen soft, nondistended, Tenderness on palpation of suprapubic, RLQ, LLQ. SKIN/MSK/EXT: Looking Pale ,No wounds/rashes/amputations, no pain on palpation.Edema on B/L legs upto thighs. Pedal pulses present B/L NEURO: AAOx3, no focal neuro deficits, able to move all 4 extremities Results: Labs 04/04/25 20:25 04/04/25 20:25 Labs: Short CBC 04/04/25 Range/Units 20:25 WBC 2.5 L (3.6-11.0) Thou/mm3 Hgb 6.2 L* (12.0-16.0) g/dL Hct 20.4 L* (36.0-46.0) % Plt Count 217 (140-440) Thou/mm3 BMP 04/04/25 20:25 Sodium 137 Potassium 4.3 Chloride 105 Carbon Dioxide 23.1 BUN 7 L Creatinine 0.8 Glucose 66 L Calcium 8.4 Cardiac Enzymes 04/04/25 Range/Units 20:25 Troponin I < 0.002 (0.0-0.045) ng/mL Liver Function 04/04/25 Range/Units 20:25 Total Bilirubin 0.9 (0.3-1.2) mg/dL Direct Bilirubin 0.4 H (0.0-0.3) mg/dL AST 10 (0-34) U/L ALT < 7 L (10-49) U/L Alkaline Phosphatase 79 (46-116) U/L Albumin 2.9 L (3.5-5.0) gm/dL Urine 04/04/25 Range/Units 21:19 Urine Color Lt-Yellow (Lt Yel-Yel) Urine Clarity Clear (Clear/Hazy) Urine pH 7.0 (5.0-7.0) Ur Specific [place] 1.014 (1.001-1.035) Urine Protein Negative (Neg - Trace) Urine Glucose (UA) Negative (Negative) ABG Interpretation ABG results: 04/04/25 20:25 VBG pH 7.43 VBG pCO2 39 VBG pO2 37 VBG Base Excess 1 Quality Measures Quality Measures none Medications Home Medications and Allergies Home Medications ?Medication ?Instructions ?Recorded ?Confirmed ?Type levetiracetam 500 mg tablet 500 mg PO BID #0 tabs 04/2904/05/25 History (Keppra) omeprazole 20 mg capsule,delayed 20 mg PO QDAY ##0 04/05/25 History release sertraline 100 mg tablet (Zoloft) 150 mg PO HS #0 tabs 05/23/17 04/05/25 History Allergies Allergy/AdvReac Type Severity Reaction Status Date / Time codeine Allergy Severe RASH Verified 02/02/25 15:25 Sulfa (Sulfonamide Allergy Severe RASH Verified 02/02/25 15:25 Antibiotics) ciprofloxacin AdvReac Severe ABD PAIN, Verified 02/02/25 15:25 BLOATING ibuprofen AdvReac Severe CONTRAINDICATED Verified 02/02/25 15:25 DUE TO GASTRIC BYPASS Visit Medications Acetaminophen (Acetaminophen 325 Mg Tablet) 650 mg PO Q6H PRN PRN Reason: Fever >100.4 Stop: 05/05/25 02:25 Acetaminophen (Acetaminophen 325 Mg Tablet) 650 mg PO Q6H PRN PRN Reason: PAIN SCALE 1-3 (mild Stop: 05/05/25 02:25 Dextrose/Lactated Ringer's (D5-Lr) 1,000 mls @ 200 mls/hr IV .Q5H ONE Stop: 04/05/25 05:28 Last Admin: 04/05/25 01:35 Dose: 200 mls/hr Morphine Sulfate (Morphine Sulf Inj 4 Mg/Ml Vial) 2 mg IVP Q4HR PRN PRN Reason: Pain Scale 6-10 (Severe Stop: 04/10/25 02:25 Ondansetron HCl (Ondansetron Inj 2 Mg/Ml Inj 2 Ml) 4 mg IVP Q6H PRN; Protocol PRN Reason: NAUSEA OR VOMITING Stop: 05/05/25 02:25 Pantoprazole Sodium (Pantoprazole Inj 40 Mg Vial) 40 mg IVP BID DREW Stop: 05/05/25 08:59 Sennosides (Senna Tablet) 1 tab PO QDAY PRN; Protocol PRN Reason: constipation Stop: 05/05/25 02:25 Discontinued Medications Famotidine (Famotidine Inj 10 Mg/Ml Vial 2 Ml) 20 mg IVP X1 ONE Stop: 04/05/25 01:03 Last Admin: 04/05/25 01:40 Dose: 20 mg Hydromorphone HCl (Hydromorphone Inj 2 Mg/Ml Vial) 1 mg IVP X1 ONE Stop: 04/05/25 00:10 Last Admin: 04/05/25 00:26 Dose: 1 mg Morphine Sulfate (Morphine Sulf Inj 4 Mg/Ml Vial) 4 mg IV X1 ONE Stop: 04/04/25 20:13 Last Admin: 04/04/25 20:49 Dose: 4 mg Ondansetron HCl (Ondansetron Inj 2 Mg/Ml Inj 2 Ml) 4 mg IVP X1 ONE; Protocol Stop: 04/04/25 20:13 Last Admin: 04/04/25 20:50 Dose: 4 mg Pantoprazole Sodium (Pantoprazole Inj 40 Mg Vial) 80 mg IVP X1 ONE Stop: 04/05/25 01:03 Last Admin: 04/05/25 01:40 Dose: 80 mg Assessment & Plan Plan This is a 45 year old female with past medical history of Gastric sleeve surgery,seizures ,depression presented with shortness of breath and bilateral leg swelling. She was admitted for symptomatic anemia. #GI bleed upper vs lower # Symptomatic anemia. Shortness of breath on exertion, bilateral leg swelling, melena. Hemoglobin 6.2 hematocrit 20.4. Blood smear sent to pathology - 2 units of PRBC given in ED, follow up post transfusion H/H - Gastroenterology consulted. ?Endoscopy on 04/05 for possible source of bleeding. #Bilateral nonobstructing renal calculi Multiple renal calculi less than 5 mm. ~1-3mm ?Continue to monitor as these will likely spontaneously pass. #Seizure Disorder - Continue Keppra as taken at home #Anxiety/depression - continue sertraline as taken at home Code status: DNR/DNI DVT prophylaxis: SCD. Diet: N.p.o. Lines: PIV Supplemental O2: none Disposition: Med tele. I discussed and reviewed this case with my senior Dr. Mason and my attending Dr. Rivas. Eyad José MD-[id number]
[2025-04-05 04:44] LABS: Influenza A Ag Negative; Influenza B Ag Negative
--- NOTE | 2025-04-05 04:55 | PC.NURSE ---
[id number] REPORT CALLED TO LAURA YI AT THIS TIME.
[2025-04-05] MEDS: cefTRIAXone/D5w 1gm IV premix 1 G/50 ML BAG IV (05:43)
[2025-04-05] MEDS: MORPHINE SULF INJ 4 MG/ML VIAL 2 MG IVP ×2 (05:43→10:11)
[2025-04-05] MEDS: AZITHROMYCIN INJ 500 MG in SODIUM CHLORIDE 0.9% 250 ML 250 ML 250 MG IV (06:08)
[2025-04-05] MEDS: ONDANSETRON INJ 2 MG/ML INJ 2 ML 4 MG IVP (06:44)
[2025-04-05 10:20] LABS: Basophils # (Auto) 0.0 Thou/mm3 (0.0-0.2); Basophils % (Auto) 1 % (0-2.5); Eosinophils # (Auto) 0.1 Thou/mm3 (0.0-0.5); Eosinophils % (Auto) 2 % (0-10); Hematocrit 24.4 % (36.0-46.0); Immature Granulocytes Auto 0.01 Thou/mm3 (0.00-0.00); Lymphocytes # (Auto) 1.1 Thou/mm3 (1.0-4.8); Lymphocytes % (Auto) 41 % (10-50); Mean Corpuscular HGB Conc 31.1 g/dl (31.0-37.0); Mean Corpuscular Hemoglobin 26.4 pg (25.0-35.0); Mean Corpuscular Volume 85 fL (80-100); Monocytes # (Auto) 0.2 Thou/mm3 (0.0-0.8); Monocytes % (Auto) 8 % (0-12); Neutrophils # (Auto) 1.3 Thou/mm3 (1.8-7.7); Neutrophils % (Auto) 48 % (37-80); Nucleated Red Blood Cell # 0.00 Thou/mm3 (0.00-0.00); Nucleated Red Blood Cell % 0 /100 WBC (0); Platelet Count 196 Thou/mm3 (140-440); RDW Standard Deviation 47.3 fL (36.4-46.3); Red Blood Count 2.88 Miln/mm3 (4.00-5.20); White Blood Count 2.7 Thou/mm3 (3.6-11.0)
[2025-04-05 10:26] LABS: Hemoglobin 7.6 g/dL (12.0-16.0)
[2025-04-05 10:49] LABS: Alanine Aminotransferase < 7 U/L (10-49); Albumin, Serum 2.6 gm/dL (3.5-5.0); Albumin/Globulin Ratio 1.2 (1.2-2.2); Alkaline Phosphatase 75 U/L (46-116); Anion Gap 7 (7-16); Aspartate Amino Transferase 14 U/L (0-34); BUN/Creatinine Ratio 7 Ratio (12-20); Bilirubin,Total 1.1 mg/dL (0.3-1.2); Blood Urea Nitrogen 6 mg/dL (9-23); Calcium 8.3 mg/dL (8.3-10.6); Calcium (Corrected) 9.4 mg/dL (8.5-10.1); Carbon Dioxide 27.8 mMol/L (20.0-31.0); Cardiac Risk Estimate 2.3 RATIO (3.7-5.6); Chloride 104 mMol/L (98-107); Cholesterol 93 mg/dL (132-200); Creatinine (Component) 0.9 mg/dL (0.6-1.3); Estimated Creatinine Clearance 111.1 mL/min (>60); Globulin 2.2 gm/dL (2.3-3.5); Glucose 68 mg/dL (74-106); HDL Cholesterol 41 mg/dL (40-60); LDL Cholesterol,Calculated 40 mg/dL (0-130); Magnesium 2.1 mg/dL (1.6-2.6); Osmolality,Calculated 273 (275-295); Phosphorous 3.6 mg/dL (2.4-5.1); Potassium 4.5 mMol/L (3.4-5.1); Sodium 139 mMol/L (136-145); Thyroid Stimulating Hormone 3.61 uIU/mL (0.55-4.78); Total Protein 4.8 gm/dL (5.7-8.2); Triglycerides 60 mg/dL (30-150); eGFR > 60 See Note
[2025-04-05 11:34] LABS: Creatine Kinase 176 U/L (34-171)
--- NOTE | 2025-04-05 11:58 | ESPR_ITS ---
<Statement entered by Andrea Jimenez MD - 04/05/25 18:25> Patient seen and assessed in hospital bed reports persistent pain secondary to chronic pain which she is on methadone for. Will restart patient's pain management. GI has scheduled endoscopy for the patient which will be completed tonight. Patient received 2 units of PRBC and hemoglobin has been stable. There is some concern as the patient had a fall prior to admission, will order lumbar x-ray to rule out any fracture. Patient denies having any paresthesias of the thigh and does not have any fecal incontinence; suspicion is low for cauda equina syndrome. Will continue monitoring the patient and expect discharge within the next 48 hours. I have personally seen and examined the patient. I agree with the resident's assessment and plan as documented below. Andrea Jimenez DO PGY-2 Internal Medicine - [facility] Documentation for date of: 04/05/25 Subjective Subjective Interval history: Patient seen at bedside. Patient came in overnight. Complaining of lower extremity pain and left lower back pain after the fall from yesterday. Patient mentioned that she fell while coming out of the bathroom and was on the ground for 5 hours. Mentioned did not hit head, and fell on buttocks. She also mentioned that she takes methadone for the last 4 years for low back pain and goes to pain clinic every 2 weeks to get it refilled, currently on 109 mg daily. For the past week patient has been using a walker to ambulate at home which is not her usual baseline but she feels that her legs are very heavy. She mentioned that her legs appear 3 times as big. No complaints of chest pain, palpitations, no shortness of breath at rest but with excertion. Patient still cancer. Last menstrual period was March 08, no heavy periods. Exam Vital Signs Temp Pulse Resp BP Pulse Ox O2 Del Method O2 Flow Rate 97.2 F 79 15 112/62 98 Room Air 97 04/05/25 08:00 04/05/25 08:00 04/05/25 08:00 04/05/25 08:00 04/05/25 08:00 04/05/25 08:00 04/05/25 00:19 Narrative Exam GENERAL: NAD, AAOx3, morbidly obese HEENT: Moist mucosa. EOMI. Neck supple. No ear discharge. Oral mucosa clear. CARDIO: Regular rate and rhythm. S1 + S2. No Murmurs. Euvolemic. JVP not elevated. PULM: Good air entry bilaterally. No wheezes/crackles. GI: Abdomen soft, nondistended, Tenderness on palpation of suprapubic. SKIN/MSK/EXT: Pale. No wounds/rashes/amputations, no pain on palpation. Noonpitting edema on B/L legs upto thighs. Pedal pulses present B/L. NEURO: AAOx3, no focal neuro deficits, able to move all 4 extremities. PSYCH: Coherent thoughts, no flight of ideas Objective Labs 04/05/25 14:10 04/05/25 09:45 Labs: Laboratory Results - last 24 hr 04/04/25 04/04/25 04/04/25 20:25 21:19 21:44 WBC 2.5 L RBC 2.42 L Hgb 6.2 L* Hct 20.4 L* MCV 84 MCH 25.6 MCHC 30.4 L RDW Std Deviation 48.4 H Plt Count 217 Neut % (Auto) 69 Lymph % (Auto) 23 [place] % (Auto) 7 Eos % (Auto) 0 Baso % (Auto) 1 Neut # (Auto) 1.7 L Lymph # (Auto) 0.6 L [place] # (Auto) 0.2 Eos # (Auto) 0.0 Baso # (Auto) 0.0 Immature Gran # (Auto) 0.01 H Absolute Nucleated RBC 0.00 Immature Gran % 0 Nucleated RBC % 0 Smear Path Review Sent to Pathologist D-Dimer 295 VBG pH 7.43 VBG pCO2 39 VBG pO2 37 VBG O2 Sat (Ca) 70 L VBG Base Excess 1 Sodium 137 Potassium 4.3 Chloride 105 Carbon Dioxide 23.1 Anion Gap 9 BUN 7 L Creatinine 0.8 Estim Creat Clear Calc 132.6 eGFR > 60 BUN/Creatinine Ratio 9 L Glucose 66 L Calculated Osmolality 269 L Calcium 8.4 Corrected Calcium 9.3 Phosphorus Magnesium 2.0 Total Bilirubin 0.9 Direct Bilirubin 0.4 H AST 10 ALT < 7 L Alkaline Phosphatase 79 Total Creatine Kinase Troponin I < 0.002 B-Natriuretic Peptide 92 Total Protein 5.2 L Albumin 2.9 L Globulin 2.3 Albumin/Globulin Ratio 1.3 Triglycerides Cholesterol LDL Cholesterol, Calc HDL Cholesterol Cholesterol/HDL Ratio Lipase 25 TSH 1.89 HCG, Qual Negative Ur Collection Type Clean Catch Urine Color Lt-Yellow Urine Clarity Clear Urine pH 7.0 Ur Specific [place] 1.014 Urine Protein Negative Urine Glucose (UA) Negative Urine Ketones Negative Urine Blood Negative Urine Nitrite Negative Urine Bilirubin Negative Urine Urobilinogen (Auto) Negative Ur Leukocyte Esterase Negative Urine RBC < 1 Urine WBC 0 Ur Squamous Epith Cells 0 Urine Bacteria None Ur Culture Indicated? Not Indicated Influenza A (Rapid) Influenza B (Rapid) Blood Type A Positive Antibody Screen NEGATIVE Crossmatch See Detail Blood Bank Wristband ID Yes 04/05/25 04/05/25 03:54 09:45 WBC 2.7 L RBC 2.88 L Hgb 7.6 L D Hct 24.4 L MCV 85 MCH 26.4 MCHC 31.1 RDW Std Deviation 47.3 H Plt Count 196 Neut % (Auto) 48 Lymph % (Auto) 41 [place] % (Auto) 8 Eos % (Auto) 2 Baso % (Auto) 1 Neut # (Auto) 1.3 L Lymph # (Auto) 1.1 [place] # (Auto) 0.2 Eos # (Auto) 0.1 Baso # (Auto) 0.0 Immature Gran # (Auto) 0.01 H Absolute Nucleated RBC 0.00 Immature Gran % 0 Nucleated RBC % 0 Smear Path Review D-Dimer VBG pH VBG pCO2 VBG pO2 VBG O2 Sat (Ca) VBG Base Excess Sodium 139 Potassium 4.5 Chloride 104 Carbon Dioxide 27.8 Anion Gap 7 BUN 6 L Creatinine 0.9 Estim Creat Clear Calc 111.1 eGFR > 60 BUN/Creatinine Ratio 7 L Glucose 68 L Calculated Osmolality 273 L Calcium 8.3 Corrected Calcium 9.4 Phosphorus 3.6 Magnesium 2.1 Total Bilirubin 1.1 Direct Bilirubin AST 14 ALT < 7 L Alkaline Phosphatase 75 Total Creatine Kinase 176 H Troponin I B-Natriuretic Peptide Total Protein 4.8 L Albumin 2.6 L Globulin 2.2 L Albumin/Globulin Ratio 1.2 Triglycerides 60 Cholesterol 93 L LDL Cholesterol, Calc 40 HDL Cholesterol 41 Cholesterol/HDL Ratio 2.3 L Lipase TSH 3.61 HCG, Qual Ur Collection Type Urine Color Urine Clarity Urine pH Ur Specific [place] Urine Protein Urine Glucose (UA) Urine Ketones Urine Blood Urine Nitrite Urine Bilirubin Urine Urobilinogen (Auto) Ur Leukocyte Esterase Urine RBC Urine WBC Ur Squamous Epith Cells Urine Bacteria Ur Culture Indicated? Influenza A (Rapid) Negative Influenza B (Rapid) Negative Blood Type Antibody Screen Crossmatch Blood Bank Wristband ID ABG Interpretation ABG results: 04/04/25 20:25 VBG pH 7.43 VBG pCO2 39 VBG pO2 37 VBG Base Excess 1 Quality Measures Quality Measures none Assessment & Plan Assessment Current Active Medications: Generic Name Dose Route Start Last Admin Trade Name Freq PRN Reason Stop Dose Admin Acetaminophen 650 mg 04/05/25 02:26 Acetaminophen 325 Mg Tablet PO 05/05/25 02:25 Q6H PRN Fever >100.4 Acetaminophen 650 mg 04/05/25 02:26 Acetaminophen 325 Mg Tablet PO 05/05/25 02:25 Q6H PRN PAIN SCALE 1-3 (mild Hydromorphone HCl 0.25 mg 04/05/25 11:42 Hydromorphone Inj 2 Mg/Ml Vial IVP 04/10/25 11:41 Q6HR PRN PAIN Levetiracetam 500 mg 04/05/25 09:00 04/05/25 10:11 Levetiracetam 250 Mg Tablet PO 05/05/25 08:59 500 mg BID DREW Administration Ondansetron HCl 4 mg 04/05/25 02:26 04/05/25 06:44 Ondansetron Inj 2 Mg/Ml Inj 2 Ml IVP 05/05/25 02:25 4 mg Q6H PRN Administration NAUSEA OR VOMITING Protocol Pantoprazole Sodium 40 mg 04/05/25 09:00 04/05/25 10:10 Pantoprazole Inj 40 Mg Vial IVP 05/05/25 08:59 40 mg BID DREW Administration Sennosides 1 tab 04/05/25 02:26 Senna Tablet PO 05/05/25 02:25 QDAY PRN constipation Protocol Sertraline HCl 150 mg 04/05/25 21:00 Sertraline Hcl 25 Mg Tablet PO 05/05/25 20:59 HS DREW Plan 45 year old female with past medical history of gastric sleeve surgery, seizures, depression presented after a fall. She was admitted for symptomatic anemia. #GI bleed upper vs lower #Symptomatic anemia. Upper GI bleed DDx: PUD, Esophagael/gastric varices/erosions Lower GI bleed DDx: Diverticular disease, Hemorroids/Anal Fissures/ Colitis/Angiodysplasia Shortness of breath on exertion, bilateral leg swelling, melena, hematemesis for the last 3 months On initial presentation hemoglobin 6.2 hematocrit 20.4. Blood smear sent to pathology Patient received 2 units of PRBC given in ED, Hemoglobin went up from 6.2 --> 7.6 folowing transfusion BNP negative, euvolemic, no JVP elevation - less likely new dx of CH Plan: ?Gastroenterology consulted, Dr. Jose, to perform EGD this evening to look for source of bleeding ?Echocardiogram ordered 04/05 #Bilateral nonobstructing renal calculi Multiple renal calculi less than 5 mm. ~1-3mm ? Follow-up outpatient for further evaluation #Seizure Disorder - Continue Keppra home dose 500 mg twice daily #Anxiety/depression - Continue sertraline home dose 150 mg daily Health maintenance: Code status: DNR/DNI DVT prophylaxis: SCD. Diet: N.p.o. Lines: PIV Supplemental O2: none Disposition: Med tele. Case discussed with my attending Dr. Oquendo, and senior resident, Dr. Barbara Iqbal MD PGY-1 Attending Provider Attestation/Addendum I attest that I was physically present for the evaluation, physical examination, lab and imaging review of the patient with the residents. I discussed the case with the residents and agree with the findings and plans of care as documented above. Patient seen and examined at bedside this morning. Complains of pain around her legs and abdomen. Patient is also on methadone therapy for her chronic hip pain. She was admitted overnight for management of GI bleeding and symptomatic anemia. Hemoglobin improved to 7.6 from 6.2 after 2 units of PRBC transfusion. Patient had noticed darker stool followed by reddish stool for few months. She is also experiencing increasing shortness of breath, exertional dyspnea, weight gain, limb swelling for last 2 to 3 months. Patient also stated that she had recently from her partner before the symptoms started. Discussed with GI, patient is planned for EGD today. Patient has bilateral nonpitting edema, we will obtain echocardiogram. Physical therapy, wound care has been consulted. Continues to be on Keppra for seizure disorder. Continues to be on sertraline for depression/anxiety. Yanet Oquendo MD
[2025-04-05 14:24] LABS: Hematocrit 24.4 % (36.0-46.0)
[2025-04-05 14:42] LABS: Hemoglobin 7.7 g/dL (12.0-16.0)
--- NOTE | 2025-04-05 15:18 | ECHO_ITS ---
Transthoracic Echo Report Ht (in): 68 Wt (lb): 279 Exam Location: 365 Status: Inpatient Tube Worker: Cara Dawn Indications: Procedure Performed: BP: 110 / 64 HR: 85 MEASUREMENTS (Male / Female) Normal Values 2D ECHO LV Diastolic Diameter PLAX 5.5 cm 4.2 - 5.9 / 3.9 - 5.3 cm LV Systolic Diameter PLAX 3.7 cm IVS Diastolic Thickness 1.1 cm 0.6 - 1.0 / 0.6 - 0.9 cm LVPW Diastolic Thickness 1.3 cm 0.6 - 1.0 / 0.6 - 0.9 cm LV Relative Wall Thickness 0.4 LVOT Diameter 2.0 cm Ascending Aorta Diameter 2.9 cm M-MODE AV Cusp Separation MM 1.2 cm DOPPLER AV Peak Velocity 147.0 cm/s AV Peak Gradient 8.6 mmHg AV Mean Gradient 4.0 mmHg AV Velocity Time Integral 27.7 cm LVOT Peak Velocity 122.0 cm/s LVOT Peak Gradient 6.0 mmHg LVOT Velocity Time Integral 24.3 cm LVOT Cardiac Index 2568.7 cm?/min?m? AV Area Cont Eq vti 2.8 cm? AV Area Cont Eq pk 2.6 cm? MV Area PHT 5.1 cm? Mitral E Point Velocity 64.5 cm/s Mitral A Point Velocity 91.7 cm/s Mitral E to A Ratio 0.7 LV E' Lateral Velocity 7.4 cm/s Mitral E to LV E' Lateral Ratio 8.7 LV E' Septal Velocity 7.1 cm/s Mitral E to LV E' Septal Ratio 9.1 TR Peak Velocity 245.0 cm/s TR Peak Gradient 24.0 mmHg PV Peak Velocity 106.0 cm/s PV Peak Gradient 4.5 mmHg FINDINGS Left Ventricle Normal left ventricular size, wall thickness, systolic function with no obvious regional wall motion abnormalities. There is grade I diastolic dysfunction of the left ventricle (impaired relaxation pattern). The ejection fraction is visually estimated at 50-55%. Right Ventricle The right ventricle is normal in size and systolic function. The estimated right ventricular systolic pressure, 35 mmHg with RAP 8 Left Atrium The left atrial cavity size is mildly increased. Right Atrium The right atrium is normal by two-dimensional imaging, color flow and Doppler imaging with no structural abnormalities, no thrombus formation present. Atrial Septum The interatrial septum appears normal with no evidence of a shunt. Aorta The aorta is normal by two-dimensional, color flow and Doppler interrogation. Mitral Valve The mitral valve is normal by two-dimensional, color flow and Doppler interrogation. Mild mitral regurgitation. Aortic Valve The aortic valve is trileaflet and normal by two-dimensional, color flow and Doppler interrogation. There is no significant aortic valve regurgitation. Tricuspid Valve The tricuspid valve is normal by two-dimensional, color flow and Doppler interrogation. There is mild tricuspid valve regurgitation. Pulmonic Valve The pulmonic valve is not well visualized. There is no significant pulmonic valve regurgitation. Vessels The pulmonary artery appears normal. The inferior vena cava not well visualized. Pericardium The pericardium is normal by two-dimensional imaging. There is no significant pericardial effusion. CONCLUSIONS Indication: CHF Normal left ventricular size and function. Approximate ejection fraction is 50- 55%. Grade I diastolic dysfunction Normal right ventricular size and function. RVSP 35 mmHg with RAP 8 . Mild HTN Mild dilated LA Mild mitral and trace tricuspid regurgitation noted. Johan Riddle (Electronically Signed) Final Date: 06 April 2025 10:20
[2025-04-05] MEDS: HYDROmorphone INJ 2 MG/ML VIAL 0.25 MG IVP (16:36)
--- NOTE | 2025-04-05 17:03 | PD.RESCONSUL ---
HPI Data of Consult Requesting Physician: Yanet Oquendo MD Admitting Provider: Amarjit Rivas MD Attending Provider: Yanet Oquendo MD Primary Care Provider: Physician No Primary/Family Consult Narrative Reason for consult: Upper gi bleed, with acute symptomatic anemia History of present illness: Ms Stafford is a 45 year old woman with hx of GERD, gastric ulcers, gastric bypass in 2000, seizures (on keppra), migraines, anxiety and depression, and normocytic anemia who presented the the ED following an episode of bladder incontinence and subsequent unwitnessed ground level fall without head strike. She states that she has had poor dentition and several toothaches that she attributes to poor nutrition given gastric bypass surgery. She reports taking naproxen 500 mg BID for the past several months to help with her dental pain and her migraines. She states that she has had multiple episodes of coughing up blood and bloody emesis. She also has noted changes in her stools, with coffee ground consistency and melena. She takes omeprazole 20 mg po qd for her gerd but states that it provides minimal relief for her symptoms Social History: pt reports having recent eviction notice in her home, She recently had break up with her care home girlfriend of 11 years. She does not have access to a car. 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 Surgical History: Gastric Bypass in 2000, cholecystectomy ED course, Hgb 6.2, given 2 units PRBC, post transfusion 7.7 CTAP with several bilateral non obstructing stones, cystitis CTA chest with no PE, ?early PNA BLE venous doppler: no DVT. cc:: cc: Yanet Oquendo MD Review of Systems Review of Systems Narrative Review of Systems: as per hpi Past Medical History Surgical History SURGICAL: Positive Gastric Bypass Surgery Exam Vital Signs Temp Pulse Resp BP Pulse Ox O2 Del Method O2 Flow Rate 97.7 F 70 16 135/63 H 99 Room Air 97 04/05/25 16:00 04/05/25 16:00 04/05/25 16:00 04/05/25 16:00 04/05/25 16:00 04/05/25 16:00 04/05/25 00:19 Narrative Exam GENERAL: very tearful, AAO x3, laying upright in bed, reports having abdominal pain HEENT: Head AT/ NC, poor dentition. Mucous membranes dry. PERRL. NECK: Supple, no lymphadenopathy, no carotid bruits. CARDIOVASCULAR: RRR. Normal S1/S2, No m/r/g. No pitting edema of bilateral LEs. large circomfrential non pitting swelling of the bilateral lower extremities to the upper thigh. RESPIRATORY: CTAB. No wheezing, rhonchi, crackles. GASTROINTESTINAL: Abdomen soft, very obese , tender to palpation of the left upper quadurant and epigastrum, no palpable masses. Bowel sounds present, Left CVA tenderness. no rebound or guarding. : Sotomayor catheter in place MUSCULOSKELETAL:? No cyanosis or edema, no visible joint swelling. NEUROLOGICAL: CN II-XII grossly intact. moving 4 extremities spontaneously . lumbar tenderness along the spinous process, and no paraspinal tenderness, she endorses sensation to pressure of the low back to gluteal cleft, and poor sensation to touch of that area. PSYCHIATRIC: Awake and alert, not agitated, normal mood and affect. SKIN: Abdominal skin wounds from large pannus and pt reported poor hygeine Results Labs 04/05/25 14:10 04/05/25 09:45 Labs: Short CBC 04/04/25 04/05/25 04/05/25 Range/Units 20:25 09:45 14:10 WBC 2.5 L 2.7 L (3.6-11.0) Thou/mm3 Hgb 6.2 L* 7.6 L D 7.7 L (12.0-16.0) g/dL Hct 20.4 L* 24.4 L 24.4 L (36.0-46.0) % Plt Count 217 196 (140-440) Thou/mm3 BMP 04/04/25 04/05/25 20:25 09:45 Sodium 137 139 Potassium 4.3 4.5 Chloride 105 104 Carbon Dioxide 23.1 27.8 BUN 7 L 6 L Creatinine 0.8 0.9 Glucose 66 L 68 L Calcium 8.4 8.3 Cardiac Enzymes 04/04/25 04/05/25 Range/Units 20:25 09:45 Total Creatine Kinase 176 H (34-171) U/L Troponin I < 0.002 (0.0-0.045) ng/mL Liver Function 04/04/25 04/05/25 Range/Units 20:25 09:45 Total Bilirubin 0.9 1.1 (0.3-1.2) mg/dL Direct Bilirubin 0.4 H (0.0-0.3) mg/dL AST 10 14 (0-34) U/L ALT < 7 L < 7 L (10-49) U/L Alkaline Phosphatase 79 75 (46-116) U/L Albumin 2.9 L 2.6 L (3.5-5.0) gm/dL Urine 04/04/25 Range/Units 21:19 Urine Color Lt-Yellow (Lt Yel-Yel) Urine Clarity Clear (Clear/Hazy) Urine pH 7.0 (5.0-7.0) Ur Specific [place] 1.014 (1.001-1.035) Urine Protein Negative (Neg - Trace) Urine Glucose (UA) Negative (Negative) ABG Interpretation ABG results: 04/04/25 20:25 VBG pH 7.43 VBG pCO2 39 VBG pO2 37 VBG Base Excess 1 Quality Measures Quality Measures VTE prophylaxis Medications Home Medications and Allergies Home Medications ?Medication ?Instructions ?Recorded ?Confirmed ?Type levetiracetam 500 mg tablet 500 mg PO BID #0 tabs 05/23/17 04/05/25 History (Keppra) omeprazole 20 mg capsule,delayed 20 mg PO QDAY ##0 05/23/17 04/05/25 History release sertraline 100 mg tablet (Zoloft) 150 mg PO HS #0 tabs 05/23/17 04/05/25 History Allergies Allergy/AdvReac Type Severity Reaction Status Date / Time codeine Allergy Severe RASH Verified 02/02/25 15:25 Sulfa (Sulfonamide Allergy Severe RASH Verified 02/02/25 15:25 Antibiotics) ciprofloxacin AdvReac Severe ABD PAIN, Verified 02/02/25 15:25 BLOATING ibuprofen AdvReac Severe CONTRAINDICATED Verified 02/02/25 15:25 DUE TO GASTRIC BYPASS Visit Medications Acetaminophen (Acetaminophen 325 Mg Tablet) 650 mg PO Q6H PRN PRN Reason: Fever >100.4 Stop: 05/05/25 02:25 Acetaminophen (Acetaminophen 325 Mg Tablet) 650 mg PO Q6H PRN PRN Reason: PAIN SCALE 1-3 (mild Stop: 05/05/25 02:25 Hydromorphone HCl (Hydromorphone Inj 2 Mg/Ml Vial) 0.25 mg IVP Q6HR PRN PRN Reason: PAIN Stop: 04/10/25 11:41 Last Admin: 04/05/25 16:36 Dose: 0.25 mg Levetiracetam (Levetiracetam 250 Mg Tablet) 500 mg PO BID [facility] Stop: 05/05/25 08:59 Last Admin: 04/05/25 10:11 Dose: 500 mg Ondansetron HCl (Ondansetron Inj 2 Mg/Ml Inj 2 Ml) 4 mg IVP Q6H PRN; Protocol PRN Reason: NAUSEA OR VOMITING Stop: 05/05/25 02:25 Last Admin: 04/05/25 06:44 Dose: 4 mg Pantoprazole Sodium (Pantoprazole Inj 40 Mg Vial) 40 mg IVP BID [facility] Stop: 05/05/25 08:59 Last Admin: 04/05/25 10:10 Dose: 40 mg Polyethylene Glycol (Polyethylene Glycol 17 Gm Packet) 17 gm PO QDAY [facility] Stop: 05/05/25 14:29 Last Admin: 04/05/25 15:13 Dose: Not Given Sennosides (Senna Tablet) 1 tab PO QDAY [facility]; Protocol Stop: 05/05/25 14:29 Last Admin: 04/05/25 15:13 Dose: Not Given Sertraline HCl (Sertraline Hcl 25 Mg Tablet) 150 mg PO HS [facility] Stop: 05/05/25 20:59 Discontinued Medications Famotidine (Famotidine Inj 10 Mg/Ml Vial 2 Ml) 20 mg IVP X1 ONE Stop: 04/05/25 01:03 Last Admin: 04/05/25 01:40 Dose: 20 mg Hydromorphone HCl (Hydromorphone Inj 2 Mg/Ml Vial) 1 mg IVP X1 ONE Stop: 04/05/25 00:10 Last Admin: 04/05/25 00:26 Dose: 1 mg Dextrose/Lactated Ringer's (D5-Lr) 1,000 mls @ 200 mls/hr IV .Q5H ONE Stop: 04/05/25 05:28 Last Infusion: 04/05/25 04:11 Dose: 200 mls/hr Ceftriaxone Sodium/Dextrose (Rocephin/D5w 1gm Iv Premix) 1 g in 50 mls @ 100 mls/hr IV X1 ONE Stop: 04/05/25 03:58 Last Admin: 04/05/25 05:43 Dose: 100 mls/hr Azithromycin 500 mg/ Sodium (Chloride) 250 mls @ 250 mls/hr IV X1 ONE Stop: 04/05/25 04:28 Last Admin: 04/05/25 06:08 Dose: 250 mls/hr Influenza Virus Vaccine Quadrival (Influenza Virus Quadrivalent 0.5 Ml Syringe) 0.5 ml IMi .ONCE ONE Stop: 04/05/25 06:03 Morphine Sulfate (Morphine Sulf Inj 4 Mg/Ml Vial) 4 mg IV X1 ONE Stop: 04/04/25 20:13 Last Admin: 04/04/25 20:49 Dose: 4 mg Morphine Sulfate (Morphine Sulf Inj 4 Mg/Ml Vial) 2 mg IVP Q4HR PRN PRN Reason: Pain Scale 6-10 (Severe Stop: 04/10/25 02:25 Last Admin: 04/05/25 10:11 Dose: 2 mg Ondansetron HCl (Ondansetron Inj 2 Mg/Ml Inj 2 Ml) 4 mg IVP X1 ONE; Protocol Stop: 04/04/25 20:13 Last Admin: 04/04/25 20:50 Dose: 4 mg Pantoprazole Sodium (Pantoprazole Inj 40 Mg Vial) 80 mg IVP X1 ONE Stop: 04/05/25 01:03 Last Admin: 04/05/25 01:40 Dose: 80 mg Sennosides (Senna Tablet) 1 tab PO QDAY PRN; Protocol PRN Reason: constipation Stop: 05/05/25 02:25 Assessment & Plan Plan Ms Stafford is a 45 year old woman with a history of seizures, GERD, gastric ulcers, gastric bypass surgery (2000), anxiety and depression, with history of chronic Naproxen use and reported melena and hemoptysis who presented to the ED with weakness, shortness of breath, chest pain, bladder incontinence (and possible retention), and lower extremity swelling who was found to have Hgb of 6.2, who recieved 2 units PRBC in the ED. GI was consulted for suspected upper GI bleed. Plan for EGD. #GI bleed upper vs lower #Symptomatic normocytic anemia s/p 2 units PRBC Suspect upper GI bleed given pt reported chronic naproxen use for her migraines and tooth pain. She endorses melena and has noted bloody emesis in the past month. She has history of gastric ulcers, and takes omeprazole for GERD, but states that her symptoms persist. Patient denies heavy etoh use. Ddx Upper GI bleed DDx: PUD, Esophagael/gastric varices/erosions Lower GI bleed DDx: Diverticular disease, Hemorroids/Anal Fissures/ Colitis/Angiodysplasia On initial presentation hemoglobin 6.2 hematocrit 20.4. Patient received 2 units of PRBC given in ED, Hemoglobin went up from 6.2 --> 7.6 folowing transfusion Plan: ?NPO pending EGD #Bowel and bladder incontinence #?Saddle anesthesia #?foot drop - consider neuro consult #Bilateral nonobstructing renal calculi #Cystitis #Seizure Disorder #Migraines #Anxiety/depression #Abdominal Skin wounds Plan discussed with Dr. Damon Dyer MD PGY1 Attending Provider Attestation/Addendum Patient evaluated laboratory data and imaging studies reviewed Clearly patient presents with posthemorrhagic anemia with a GI bleed which will require further investigation Consent obtained for fiberoptic esophagogastroduodenoscopy with possible biopsy possible therapeutic intervention under intravenous moderate sedation if EGD negative will consider fiberoptic colonoscopy Thank you very much for the opportunity to participate in the care of this patient
--- NOTE | 2025-04-05 18:22 | XR_ITS ---
EXAMINATION: AP lumbar spine single view TECHNIQUE: AP lumbar spine single view Date and time: April 05, 2025, 1904 hours INDICATIONS: Injury to the lower back today, lower back pain FINDINGS: Lumbar levoscoliosis 8 degrees Severe osteopenia No acute fracture noted on this AP only study IMPRESSION: No acute fracture noted on this AP only study
[2025-04-05] MEDS: FUROSEMIDE INJ 10 MG/ML 4ML VIAL 40 MG IVP (19:31)
--- NOTE | 2025-04-05 19:55 | PC.NURSE ---
Pt to endoscopy via gurney.
--- NOTE | 2025-04-05 20:28 | SUR.PHASEI ---
pt received from OR in recovery bay 1. pt asleep but responds to voice, breathing unlabored on room air. v/s stable. report received from Noelle YI
[2025-04-05] MEDS: DEXTROSE 50%-WATER INJ 50 ML SYRINGE 25 ML IVP (21:03)
--- NOTE | 2025-04-05 21:27 | SUR.PHASEI ---
pt awake and alert, breathing unlabored on room air. v/s stable. report called to Hyacinth YI. pt will be transferred back to room at this time.
--- NOTE | 2025-04-05 21:29 | PC.NURSE ---
Pt back to room from endoscopy via [facility].
[2025-04-05] MEDS: SERTRALINE HCL 25 MG TABLET 150 MG PO (21:55)
[2025-04-05] MEDS: NA SU/NAHCO3/KC/PEG (Golytely) 4,000 ML BTL 4000 ML PO (22:31)
[2025-04-06] VITALS: BP 113/63; PULSE 65; RESP 18; TEMP 36.2; O2SAT 97
[2025-04-06] MEDS: HYDROmorphone INJ 2 MG/ML VIAL 0.25 MG IVP ×2 (00:45→09:45)
[2025-04-06 04:00] VITALS: BP 110/64; PULSE 71; RESP 18; TEMP 36.1; O2SAT 98
[2025-04-06 05:50] LABS: Basophils # (Auto) 0.0 Thou/mm3 (0.0-0.2); Basophils % (Auto) 1 % (0-2.5); Eosinophils # (Auto) 0.1 Thou/mm3 (0.0-0.5); Eosinophils % (Auto) 2 % (0-10); Lymphocytes # (Auto) 1.0 Thou/mm3 (1.0-4.8); Mean Corpuscular Volume 85 fL (80-100); Nucleated Red Blood Cell # 0.00 Thou/mm3 (0.00-0.00); Nucleated Red Blood Cell % 0 /100 WBC (0)
[2025-04-06 05:51] LABS: Hematocrit 27.4 % (36.0-46.0); Immature Granulocytes Auto 0.01 Thou/mm3 (0.00-0.00); Lymphocytes % (Auto) 33 % (10-50); Mean Corpuscular HGB Conc 31.4 g/dl (31.0-37.0); Mean Corpuscular Hemoglobin 26.5 pg (25.0-35.0); Monocytes # (Auto) 0.2 Thou/mm3 (0.0-0.8); Monocytes % (Auto) 8 % (0-12); Neutrophils # (Auto) 1.6 Thou/mm3 (1.8-7.7); Neutrophils % (Auto) 55 % (37-80); Platelet Count 211 Thou/mm3 (140-440); RDW Standard Deviation 47.8 fL (36.4-46.3); Red Blood Count 3.24 Miln/mm3 (4.00-5.20); White Blood Count 2.9 Thou/mm3 (3.6-11.0)
[2025-04-06 05:52] LABS: Hemoglobin 8.6 g/dL (12.0-16.0)
[2025-04-06 06:02] LABS: INR 1.2 (0.9-1.3); Prothrombin Time 12.4 Seconds (9.0-12.2)
[2025-04-06 06:14] LABS: Alanine Aminotransferase 7 U/L (10-49); Albumin, Serum 3.1 gm/dL (3.5-5.0); Albumin/Globulin Ratio 1.1 (1.2-2.2); Alkaline Phosphatase 90 U/L (46-116); Anion Gap 9 (7-16); Aspartate Amino Transferase 18 U/L (0-34); BUN/Creatinine Ratio 5 Ratio (12-20); Bilirubin,Total 1.2 mg/dL (0.3-1.2); Blood Urea Nitrogen < 5 mg/dL (9-23); Calcium 8.9 mg/dL (8.3-10.6); Calcium (Corrected) 9.6 mg/dL (8.5-10.1); Carbon Dioxide 32.1 mMol/L (20.0-31.0); Chloride 96 mMol/L (98-107); Creatinine (Component) 1.1 mg/dL (0.6-1.3); Estimated Creatinine Clearance 90.9 mL/min (>60); Globulin 2.9 gm/dL (2.3-3.5); Glucose 89 mg/dL (74-106); Osmolality,Calculated 270 (275-295); Potassium 4.9 mMol/L (3.4-5.1); Sodium 137 mMol/L (136-145); Total Protein 6.0 gm/dL (5.7-8.2); eGFR > 60 See Note
[2025-04-06 08:00] VITALS: BP 149/88; PULSE 71; PULSE 77; RESP 18; TEMP 36.3; O2SAT 94
--- NOTE | 2025-04-06 08:39 | PC.SS ---
Follow up note: Colonoscopy pending.
[2025-04-06] MEDS: POLYETHYLENE GLYCOL 17 GM PACKET PO (09:26)
[2025-04-06] MEDS: ONDANSETRON INJ 2 MG/ML INJ 2 ML 4 MG IVP (09:45)
--- NOTE | 2025-04-06 11:54 | PC.SS ---
SS has faxed [facility] referral. Pt is aware.
[2025-04-06 12:00] VITALS: BP 157/81; PULSE 80; PULSE 90; RESP 18; TEMP 36.3; O2SAT 95
--- NOTE | 2025-04-06 12:29 | PC.SS ---
SS met with patient regarding her d/c plan. Pt is alert/oriented. Pt was admitted for Shortness of Breath. Pt confirmed demographic and contact information is correct on facesheet. Pt resides alone. Pt ambulates using a front wheel walker which she borrowed from friend. Pt is ok with all ADLs. Patient explained she receives food stamps and Medical. Pt states she becomes short of breath when ambulating with walker. Pt does not utilize O2 at home. Pt named her friend, Marly Cameron medical decision maker if she is unable. Pt does not have [facility] caregiver. SS has sent referral to [facility] upon patient's request. Patient?s choice is to return home upon d/c. Pt followed up with PCP 5 months ago. SS contact patient registration to update patient's facesheet with the correct photoresist contact printer. Pt requested to remove Heidy Young from her facesheet. D/C plan: Return home Next of Kin: Marly Cameron, friend, phone# [phone] PCP: Dr. Hernandez from [facility] Address: Correct on facesheet
--- NOTE | 2025-04-06 13:56 | ESPR_ITS ---
<Statement entered by Andrea Jimenez MD - 04/06/25 17:42> Patient seen and assessed in hospital bed denies having any concerning symptoms at this time. Patient is being prepped for colonoscopy. Endoscopy findings were grossly unremarkable without any clear source of bleeding noted. Patient's methadone restarted and we will discontinue other pain medications at this time. Will continue monitoring and expect discharge within the next 24 to 48 hours. I have personally seen and examined the patient. I agree with the resident's assessment and plan as documented below. Andrea Jimenez DO PGY-2 Internal Medicine - G[facility] Documentation for date of: 04/06/25 Subjective Subjective Interval history: Patient seen at bedside. No acute overnight events. Patient had EGD yesterday which was unremarkable. Patient is tolerating diet. Patient received Dilaudid and morphine overnight for pain. Not complaining of chest pain, shortness of breath, nausea/vomiting. Patient will work with physiotherapy today. Patient is able to move the lower legs. Exam Vital Signs Temp Pulse Resp BP Pulse Ox O2 Del Method O2 Flow Rate 97.4 F 80 18 157/81 H 95 Room Air 3 04/06/25 12:00 04/06/25 12:00 04/06/25 12:00 04/06/25 12:00 04/06/25 12:00 04/06/25 12:00 04/05/25 20:15 Narrative Exam GENERAL: NAD, AAOx3, morbidly obese HEENT: Moist mucosa. EOMI. Neck supple. No ear discharge. Oral mucosa clear. CARDIO: Regular rate and rhythm. S1 + S2. No Murmurs. Euvolemic. JVP not elevated. PULM: Good air entry bilaterally. No wheezes/crackles. GI: Abdomen soft, nondistended, Tenderness on palpation of suprapubic. SKIN/MSK/EXT: Pale. No wounds/rashes/amputations, no pain on palpation. Noonpitting edema on B/L legs upto thighs. Pedal pulses present B/L. NEURO: AAOx3, no focal neuro deficits, able to move all 4 extremities. PSYCH: Coherent thoughts, no flight of ideas Objective Labs 04/09/25 05:22 04/10/25 04:16 Labs: Laboratory Results - last 24 hr 04/05/25 04/06/25 14:10 05:19 WBC 2.9 L RBC 3.24 L Hgb 7.7 L 8.6 L Hct 24.4 L 27.4 L MCV 85 MCH 26.5 MCHC 31.4 RDW Std Deviation 47.8 H Plt Count 211 Neut % (Auto) 55 Lymph % (Auto) 33 [place] % (Auto) 8 Eos % (Auto) 2 Baso % (Auto) 1 Neut # (Auto) 1.6 L Lymph # (Auto) 1.0 [place] # (Auto) 0.2 Eos # (Auto) 0.1 Baso # (Auto) 0.0 Immature Gran # (Auto) 0.01 H Absolute Nucleated RBC 0.00 Immature Gran % 0 Nucleated RBC % 0 PT 12.4 H INR 1.2 Sodium 137 Potassium 4.9 Chloride 96 L Carbon Dioxide 32.1 H Anion Gap 9 BUN < 5 L Creatinine 1.1 Estim Creat Clear Calc 90.9 eGFR > 60 BUN/Creatinine Ratio 5 L Glucose 89 Calculated Osmolality 270 L Calcium 8.9 Corrected Calcium 9.6 Total Bilirubin 1.2 AST 18 ALT 7 L Alkaline Phosphatase 90 Total Protein 6.0 Albumin 3.1 L D Globulin 2.9 Albumin/Globulin Ratio 1.1 L ABG Interpretation ABG results: 04/04/25 20:25 VBG pH 7.43 VBG pCO2 39 VBG pO2 37 VBG Base Excess 1 Quality Measures Quality Measures VTE prophylaxis Assessment & Plan Assessment Current Active Medications: Generic Name Dose Route Start Last Admin Trade Name Freq PRN Reason Stop Dose Admin Acetaminophen 650 mg 04/05/25 02:26 Acetaminophen 325 Mg Tablet PO 05/05/25 02:25 Q6H PRN Fever >100.4 Acetaminophen 650 mg 04/05/25 02:26 Acetaminophen 325 Mg Tablet PO 05/05/25 02:25 On Hold: 04/06/25 08:42 Q6H PRN Comment: DILAUDID IV ACTIVE. PAIN SCALE 1-3 (mild Hydromorphone HCl 0.25 mg 04/05/25 11:42 04/06/25 09:45 Hydromorphone Inj 2 Mg/Ml Vial IVP 04/10/25 11:41 0.25 mg Q6HR PRN Administration PAIN Levetiracetam 500 mg 04/05/25 09:00 04/06/25 09:26 Levetiracetam 250 Mg Tablet PO 05/05/25 08:59 500 mg BID DREW Administration Ondansetron HCl 4 mg 04/05/25 02:26 04/06/25 09:45 Ondansetron Inj 2 Mg/Ml Inj 2 Ml IVP 05/05/25 02:25 4 mg Q6H PRN Administration NAUSEA OR VOMITING Protocol Pantoprazole Sodium 40 mg 04/05/25 09:00 04/06/25 09:25 Pantoprazole Inj 40 Mg Vial IVP 05/05/25 08:59 40 mg BID DREW Administration Polyethylene Glycol 17 gm 04/05/25 14:30 04/06/25 09:26 Polyethylene Glycol 17 Gm Packet PO 05/05/25 14:29 17 gm QDAY DREW Administration Sennosides 1 tab 04/05/25 14:30 04/06/25 09:26 Senna Tablet PO 05/05/25 14:29 1 tab QDAY DREW Administration Protocol Sertraline HCl 150 mg 04/05/25 21:00 04/05/25 21:55 Sertraline Hcl 25 Mg Tablet PO 05/05/25 20:59 150 mg HS DREW Administration Plan 45 year old female with past medical history of gastric sleeve surgery, 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 She was admitted for symptomatic anemia. #GI bleed upper vs lower #Symptomatic anemia. Upper GI bleed DDx: PUD, Esophagael/gastric varices/erosions Lower GI bleed DDx: Diverticular disease, Hemorroids/Anal Fissures/ Colitis/Angiodysplasia Shortness of breath on exertion, bilateral leg swelling, melena, hematemesis for the last 3 months Blood smear sent to pathology Patient received 2 units of PRBC given in ED for hemoglobin of 6.2 BNP negative, euvolemic, no JVP elevation - less likely new dx of CHF EGD performed 04/05 unremarkable no sources of bleeding identified Plan: ?Gastroenterology consulted, Dr. Jose, colonoscopy postponed till tomorrow #History of chronic hip pain Patient is on methadone 109 mg daily and gets it refilled every 2 weeks at the pain clinic Plan: ? Restarted patient's home methadone 109 mg daily ? Discontinued all other pain medications #Bilateral nonobstructing renal calculi Multiple renal calculi less than 5 mm. ~1-3mm found on abdominal CT ? Follow-up outpatient for further evaluation #Seizure Disorder - Continue Keppra home dose 500 mg twice daily #Anxiety/depression - Continue sertraline home dose 150 mg daily Health maintenance: Code status: DNR/DNI DVT prophylaxis: SCD. Diet: Clear liquid diet Disposition: Med tele. Case discussed with my attending Dr. Do, and senior resident, Dr. Barbara Iqbal MD PGY-1 Attending Provider Attestation/Addendum I have examined the patient, reviewed labs and imaging findings, discussed the case with the resident(s), and reviewed entered orders. I agree with the plan of care as outlined in this note. Dr. Hi MD
[2025-04-06 15:46] VITALS: BMI 11.0
[2025-04-06 16:00] VITALS: BP 165/80; PULSE 66; PULSE 74; RESP 18; TEMP 36.3; O2SAT 97
[2025-04-06] MEDS: METHADONE PO (17:18)
[2025-04-06] MEDS: ASCORBIC ACID 250 MG TABLET 500 MG PO ×2 (17:19→21:01)
[2025-04-06] MEDS: MULTIVITAMINS TABLET 1 TAB PO (17:19)
[2025-04-06] MEDS: ZINC SULFATE 220 MG CAPSULE PO (17:19)
--- NOTE | 2025-04-06 18:36 | ESPR_ITS ---
Documentation for date of: 04/06/25 Subjective Subjective Interval history: Patient evaluated Hemoglobin hematocrit 8.6 and 27.4 She is drinking GoLytely but she is not clear additional GoLytely and colonoscopy postponed to tomorrow Exam Vital Signs Temp Pulse Resp BP Pulse Ox O2 Del Method O2 Flow Rate 97.4 F 74 18 165/80 H 97 Room Air 3 04/06/25 16:00 04/06/25 16:00 04/06/25 16:00 04/06/25 16:00 04/06/25 16:00 04/06/25 16:00 04/05/25 20:15 Objective Labs 04/06/25 05:19 04/06/25 05:19 Labs: Laboratory Results - last 24 hr 04/06/25 05:19 WBC 2.9 L RBC 3.24 L Hgb 8.6 L Hct 27.4 L MCV 85 MCH 26.5 MCHC 31.4 RDW Std Deviation 47.8 H Plt Count 211 Neut % (Auto) 55 Lymph % (Auto) 33 [place] % (Auto) 8 Eos % (Auto) 2 Baso % (Auto) 1 Neut # (Auto) 1.6 L Lymph # (Auto) 1.0 [place] # (Auto) 0.2 Eos # (Auto) 0.1 Baso # (Auto) 0.0 Immature Gran # (Auto) 0.01 H Absolute Nucleated RBC 0.00 Immature Gran % 0 Nucleated RBC % 0 PT 12.4 H INR 1.2 Sodium 137 Potassium 4.9 Chloride 96 L Carbon Dioxide 32.1 H Anion Gap 9 BUN < 5 L Creatinine 1.1 Estim Creat Clear Calc 90.9 eGFR > 60 BUN/Creatinine Ratio 5 L Glucose 89 Calculated Osmolality 270 L Calcium 8.9 Corrected Calcium 9.6 Total Bilirubin 1.2 AST 18 ALT 7 L Alkaline Phosphatase 90 Total Protein 6.0 Albumin 3.1 L D Globulin 2.9 Albumin/Globulin Ratio 1.1 L Impressions Impression: # Anemia of blood loss # Status post [place]-en-Y gastrojejunostomy GoLytely prep to continue Colonoscopy a.m. ABG Interpretation ABG results: 04/04/25 20:25 VBG pH 7.43 VBG pCO2 39 VBG pO2 37 VBG Base Excess 1 Assessment & Plan Time Spent With Patient Time: Total time spent is greater than 50% in coordination of care (as documented) at patient's floor/unit and/or counseling patient:
[2025-04-06 20:00] VITALS: BP 165/100; PULSE 90; RESP 16; TEMP 36.2; O2SAT 98
[2025-04-06] MEDS: SERTRALINE HCL 25 MG TABLET 150 MG PO (21:02)
[2025-04-07] VITALS (8 sets, daily range): BP systolic 105–143; BP diastolic 57–97; PULSE 73–83; RESP 16–18; TEMP 36.1–36.4; O2SAT 93–99
[2025-04-07] MEDS: ACETAMINOPHEN IVPB 1,000 MG/100 ML VIAL 250 MG IV (00:22)
[2025-04-07 05:37] LABS: Basophils # (Auto) 0.0 Thou/mm3 (0.0-0.2); Basophils % (Auto) 1 % (0-2.5); Eosinophils # (Auto) 0.1 Thou/mm3 (0.0-0.5); Eosinophils % (Auto) 2 % (0-10); Hematocrit 28.9 % (36.0-46.0); Hemoglobin 9.0 g/dL (12.0-16.0); Immature Granulocytes Auto 0.01 Thou/mm3 (0.00-0.00); Lymphocytes # (Auto) 1.3 Thou/mm3 (1.0-4.8); Lymphocytes % (Auto) 37 % (10-50); Mean Corpuscular HGB Conc 31.1 g/dl (31.0-37.0); Mean Corpuscular Hemoglobin 26.5 pg (25.0-35.0); Mean Corpuscular Volume 85 fL (80-100); Monocytes # (Auto) 0.2 Thou/mm3 (0.0-0.8); Monocytes % (Auto) 6 % (0-12); Neutrophils # (Auto) 1.9 Thou/mm3 (1.8-7.7); Neutrophils % (Auto) 54 % (37-80); Nucleated Red Blood Cell # 0.00 Thou/mm3 (0.00-0.00); Nucleated Red Blood Cell % 0 /100 WBC (0); Platelet Count 223 Thou/mm3 (140-440); RDW Standard Deviation 49.2 fL (36.4-46.3); Red Blood Count 3.40 Miln/mm3 (4.00-5.20); White Blood Count 3.5 Thou/mm3 (3.6-11.0)
[2025-04-07 06:15] LABS: Alanine Aminotransferase < 7 U/L (10-49); Albumin, Serum 3.1 gm/dL (3.5-5.0); Albumin/Globulin Ratio 1.2 (1.2-2.2); Alkaline Phosphatase 98 U/L (46-116); Anion Gap 9 (7-16); Aspartate Amino Transferase 12 U/L (0-34); BUN/Creatinine Ratio 5 Ratio (12-20); Bilirubin,Total 1.3 mg/dL (0.3-1.2); Blood Urea Nitrogen < 5 mg/dL (9-23); Calcium 8.5 mg/dL (8.3-10.6); Calcium (Corrected) 9.2 mg/dL (8.5-10.1); Carbon Dioxide 31.4 mMol/L (20.0-31.0); Chloride 98 mMol/L (98-107); Creatinine (Component) 1.0 mg/dL (0.6-1.3); Estimated Creatinine Clearance 100.0 mL/min (>60); Globulin 2.6 gm/dL (2.3-3.5); Glucose 76 mg/dL (74-106); Osmolality,Calculated 271 (275-295); Potassium 5.1 mMol/L (3.4-5.1); Sodium 138 mMol/L (136-145); Total Protein 5.7 gm/dL (5.7-8.2); eGFR > 60 See Note
[2025-04-07] MEDS: ASCORBIC ACID 250 MG TABLET 500 MG PO ×2 (09:19→21:37)
[2025-04-07] MEDS: MULTIVITAMINS TABLET 1 TAB PO (09:21)
[2025-04-07] MEDS: METHADONE PO (09:22)
[2025-04-07] MEDS: ZINC SULFATE 220 MG CAPSULE PO (09:22)
[2025-04-07] MEDS: POLYETHYLENE GLYCOL 17 GM PACKET PO (09:23)
--- NOTE | 2025-04-07 09:26 | PC.SS ---
Addendum entered by CHYNA Magdaleno 04/07/25 16:03: Rounding note: EXHAUST AND MUFFLER FITTER notified doctors patient declined SNF, patient may not qualify for HH, SS will follow up with patient with d/c plan. Original Note: EXHAUST AND MUFFLER FITTER met with patient at bedside to discuss d/c plan, patient refused SNF placement and stated she would like to go home. Patient is open to HH, her PCP is Dr. Hernandez, no HH preference, last PCP appointment in January 2025.
--- NOTE | 2025-04-07 17:28 | ESPR_ITS ---
<Statement entered by Amarjit Rivas MD - 04/08/25 12:44> I have discussed and was present for the essential components of the history, physical examination, diagnosis, and treatment plan with the resident. I agree with the patient's care as documented by the resident and amended herein by me. Amarjit Rivas MD FACP. Documentation for date of: 04/07/25 Subjective Subjective Interval history: Patient seen at bedside. No acute overnight events. Patient was not ready to have colonoscopy yesterday. Patient has been encouraged to continue finishing the GoLytely. Not complaining of chest pain, shortness of breath, nausea/vomiting. Colonoscopy planned for tonight. Exam Vital Signs Temp Pulse Resp BP Pulse Ox O2 Del Method O2 Flow Rate 97.6 F 75 18 143/85 H 95 Room Air 3 04/07/25 16:00 04/07/25 16:00 04/07/25 16:00 04/07/25 16:00 04/07/25 16:00 04/07/25 16:00 04/05/25 20:15 Narrative Exam GENERAL: NAD, AAOx3, morbidly obese HEENT: Moist mucosa. EOMI. Neck supple. No ear discharge. Oral mucosa clear. CARDIO: Regular rate and rhythm. S1 + S2. No Murmurs. Euvolemic. JVP not elevated. PULM: Good air entry bilaterally. No wheezes/crackles. GI: Abdomen soft, nondistended, Tenderness on palpation of suprapubic. SKIN/MSK/EXT: Pale. No wounds/rashes/amputations, no pain on palpation. Noonpitting edema on B/L legs upto thighs. Pedal pulses present B/L. NEURO: AAOx3, no focal neuro deficits, able to move all 4 extremities. PSYCH: Coherent thoughts, no flight of ideas Objective Labs 04/07/25 04:33 04/07/25 04:33 Labs: Laboratory Results - last 24 hr 04/07/25 04:33 WBC 3.5 L RBC 3.40 L Hgb 9.0 L Hct 28.9 L MCV 85 MCH 26.5 MCHC 31.1 RDW Std Deviation 49.2 H Plt Count 223 Neut % (Auto) 54 Lymph % (Auto) 37 [place] % (Auto) 6 Eos % (Auto) 2 Baso % (Auto) 1 Neut # (Auto) 1.9 Lymph # (Auto) 1.3 [place] # (Auto) 0.2 Eos # (Auto) 0.1 Baso # (Auto) 0.0 Immature Gran # (Auto) 0.01 H Absolute Nucleated RBC 0.00 Immature Gran % 0 Nucleated RBC % 0 Sodium 138 Potassium 5.1 Chloride 98 Carbon Dioxide 31.4 H Anion Gap 9 BUN < 5 L Creatinine 1.0 Estim Creat Clear Calc 100.0 eGFR > 60 BUN/Creatinine Ratio 5 L Glucose 76 Calculated Osmolality 271 L Calcium 8.5 Corrected Calcium 9.2 Total Bilirubin 1.3 H AST 12 ALT < 7 L Alkaline Phosphatase 98 Total Protein 5.7 Albumin 3.1 L Globulin 2.6 Albumin/Globulin Ratio 1.2 ABG Interpretation ABG results: 04/04/25 20:25 VBG pH 7.43 VBG pCO2 39 VBG pO2 37 VBG Base Excess 1 Quality Measures Quality Measures VTE prophylaxis Assessment & Plan Assessment Current Active Medications: Generic Name Dose Route Start Last Admin Trade Name Freq PRN Reason Stop Dose Admin Acetaminophen 650 mg 04/05/25 02:26 Acetaminophen 325 Mg Tablet PO 05/05/25 02:25 Q6H PRN Fever >100.4 Acetaminophen 650 mg 04/05/25 02:26 Acetaminophen 325 Mg Tablet PO 05/05/25 02:25 On Hold: 04/06/25 08:42 Q6H PRN Comment: DILAUDID IV ACTIVE. PAIN SCALE 1-3 (mild Ascorbic Acid 500 mg 04/06/25 14:30 04/07/25 09:19 Ascorbic Acid 250 Mg Tablet PO 05/06/25 14:29 500 mg BID DREW Administration Methadone 109 Mg 0 ea 04/07/25 09:00 04/07/25 09:22 Solution PO 04/08/25 15:00 1 solution QDAY DREW Administration Protocol Levetiracetam 500 mg 04/05/25 09:00 04/07/25 09:20 Levetiracetam 250 Mg Tablet PO 05/05/25 08:59 500 mg BID DREW Administration Methadone HCl 109 mg 04/09/25 09:00 Methadone Solution 1 Mg/1 Ml PO 04/14/25 08:59 QDAY DREW Multivitamins 1 tab 04/06/25 14:30 04/07/25 09:21 Multivitamins Tablet PO 05/06/25 14:29 1 tab QDAY DREW Administration Ondansetron HCl 4 mg 04/05/25 02:26 04/06/25 09:45 Ondansetron Inj 2 Mg/Ml Inj 2 Ml IVP 05/05/25 02:25 4 mg Q6H PRN Administration NAUSEA OR VOMITING Protocol Pantoprazole Sodium 40 mg 04/05/25 09:00 04/07/25 09:22 Pantoprazole Inj 40 Mg Vial IVP 05/05/25 08:59 40 mg BID DREW Administration Polyethylene Glycol 17 gm 04/05/25 14:30 04/07/25 09:23 Polyethylene Glycol 17 Gm Packet PO 05/05/25 14:29 17 gm QDAY DREW Administration Sennosides 1 tab 04/05/25 14:30 04/07/25 09:21 Senna Tablet PO 05/05/25 14:29 1 tab QDAY DREW Administration Protocol Sertraline HCl 150 mg 04/05/25 21:00 04/06/25 21:02 Sertraline Hcl 25 Mg Tablet PO 05/05/25 20:59 150 mg HS DREW Administration Zinc Sulfate 220 mg 04/06/25 14:30 04/07/25 09:22 Zinc Sulfate 220 Mg Capsule PO 04/20/25 14:29 220 mg QDAY DREW Administration Plan 45 year old female with past medical history of gastric sleeve surgery, 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 She was admitted for symptomatic anemia. #GI bleed upper vs lower #Symptomatic anemia. Upper GI bleed DDx: PUD, Esophagael/gastric varices/erosions Lower GI bleed DDx: Diverticular disease, Hemorroids/Anal Fissures/ Colitis/Angiodysplasia Shortness of breath on exertion, bilateral leg swelling, melena, hematemesis for the last 3 months Blood smear sent to pathology Patient received 2 units of PRBC given in ED for hemoglobin of 6.2 BNP negative, euvolemic, no JVP elevation - less likely new dx of CHF EGD performed 04/05 unremarkable no sources of bleeding identified Plan: ?Gastroenterology consulted, Dr. Jose, colonoscopy planned for tonight #History of chronic hip pain Patient is on methadone 109 mg daily and gets it refilled every 2 weeks at the pain clinic Plan: ? Restarted patient's home methadone 109 mg daily ? Discontinued all other pain medications #Bilateral nonobstructing renal calculi Multiple renal calculi less than 5 mm. ~1-3mm found on abdominal CT ? Follow-up outpatient for further evaluation #Seizure Disorder - Continue Keppra home dose 500 mg twice daily #Anxiety/depression - Continue sertraline home dose 150 mg daily Health maintenance: Code status: DNR/DNI DVT prophylaxis: SCD. Diet: Clear liquid diet Disposition: Med tele. Case discussed with my attending Dr. Rivas, and senior resident, Dr. Guanaco Iqbal MD PGY-1
--- NOTE | 2025-04-07 17:47 | PD.IMPROG ---
Documentation for date of: 04/07/25 Subjective Subjective Interval history: Patient was scheduled for a colonoscopy but she is taking her time to drink the GoLytely and not very cooperative And has refused NGT Exam Vital Signs Temp Pulse Resp BP Pulse Ox O2 Del Method O2 Flow Rate 97.6 F 75 18 143/85 H 95 Room Air 3 04/07/25 16:00 04/07/25 16:00 04/07/25 16:00 04/07/25 16:00 04/07/25 16:00 04/07/25 16:00 04/05/25 20:15 Objective Labs 04/07/25 04:33 04/07/25 04:33 Labs: Laboratory Results - last 24 hr 04/07/25 04:33 WBC 3.5 L RBC 3.40 L Hgb 9.0 L Hct 28.9 L MCV 85 MCH 26.5 MCHC 31.1 RDW Std Deviation 49.2 H Plt Count 223 Neut % (Auto) 54 Lymph % (Auto) 37 [place] % (Auto) 6 Eos % (Auto) 2 Baso % (Auto) 1 Neut # (Auto) 1.9 Lymph # (Auto) 1.3 [place] # (Auto) 0.2 Eos # (Auto) 0.1 Baso # (Auto) 0.0 Immature Gran # (Auto) 0.01 H Absolute Nucleated RBC 0.00 Immature Gran % 0 Nucleated RBC % 0 Sodium 138 Potassium 5.1 Chloride 98 Carbon Dioxide 31.4 H Anion Gap 9 BUN < 5 L Creatinine 1.0 Estim Creat Clear Calc 100.0 eGFR > 60 BUN/Creatinine Ratio 5 L Glucose 76 Calculated Osmolality 271 L Calcium 8.5 Corrected Calcium 9.2 Total Bilirubin 1.3 H AST 12 ALT < 7 L Alkaline Phosphatase 98 Total Protein 5.7 Albumin 3.1 L Globulin 2.6 Albumin/Globulin Ratio 1.2 Impressions Impression: Anemia blood loss GoLytely prep in progress Will discussed with the patient and she will except the NGT so we can quickly clear the colon and do the procedure ABG Interpretation ABG results: 04/04/25 20:25 VBG pH 7.43 VBG pCO2 39 VBG pO2 37 VBG Base Excess 1 Assessment & Plan Time Spent With Patient Time: Total time spent is greater than 50% in coordination of care (as documented) at patient's floor/unit and/or counseling patient:
[2025-04-07] MEDS: SERTRALINE HCL 25 MG TABLET 150 MG PO (21:37)
[2025-04-07] MEDS: ACETAMINOPHEN 325 MG TABLET 650 MG PO (23:17)
[2025-04-08] VITALS (21 sets, daily range): BP systolic 115–154; BP diastolic 66–95; PULSE 67–100; RESP 13–20; TEMP 36.1–36.7; O2SAT 93–100
[2025-04-08 05:59] LABS: Basophils # (Auto) 0.0 Thou/mm3 (0.0-0.2); Basophils % (Auto) 1 % (0-2.5); Eosinophils # (Auto) 0.1 Thou/mm3 (0.0-0.5); Eosinophils % (Auto) 2 % (0-10); Hematocrit 30.5 % (36.0-46.0); Hemoglobin 9.5 g/dL (12.0-16.0); Immature Granulocytes Auto 0.01 Thou/mm3 (0.00-0.00); Lymphocytes # (Auto) 1.2 Thou/mm3 (1.0-4.8); Lymphocytes % (Auto) 37 % (10-50); Mean Corpuscular HGB Conc 31.1 g/dl (31.0-37.0); Mean Corpuscular Hemoglobin 26.8 pg (25.0-35.0); Mean Corpuscular Volume 86 fL (80-100); Monocytes # (Auto) 0.2 Thou/mm3 (0.0-0.8); Monocytes % (Auto) 5 % (0-12); Neutrophils # (Auto) 1.8 Thou/mm3 (1.8-7.7); Neutrophils % (Auto) 55 % (37-80); Nucleated Red Blood Cell # 0.00 Thou/mm3 (0.00-0.00); Nucleated Red Blood Cell % 0 /100 WBC (0); Platelet Count 229 Thou/mm3 (140-440); RDW Standard Deviation 49.4 fL (36.4-46.3); Red Blood Count 3.55 Miln/mm3 (4.00-5.20); White Blood Count 3.2 Thou/mm3 (3.6-11.0)
[2025-04-08 06:41] LABS: Alanine Aminotransferase < 7 U/L (10-49); Albumin, Serum 3.2 gm/dL (3.5-5.0); Albumin/Globulin Ratio 1.1 (1.2-2.2); Alkaline Phosphatase 106 U/L (46-116); Anion Gap 11 (7-16); Aspartate Amino Transferase 16 U/L (0-34); BUN/Creatinine Ratio 6 Ratio (12-20); Bilirubin,Total 1.1 mg/dL (0.3-1.2); Blood Urea Nitrogen < 5 mg/dL (9-23); Calcium 8.9 mg/dL (8.3-10.6); Calcium (Corrected) 9.5 mg/dL (8.5-10.1); Carbon Dioxide 26.9 mMol/L (20.0-31.0); Chloride 99 mMol/L (98-107); Creatinine (Component) 0.9 mg/dL (0.6-1.3); Estimated Creatinine Clearance 107.5 mL/min (>60); Globulin 2.8 gm/dL (2.3-3.5); Glucose 75 mg/dL (74-106); Osmolality,Calculated 270 (275-295); Potassium 4.2 mMol/L (3.4-5.1); Sodium 137 mMol/L (136-145); Total Protein 6.0 gm/dL (5.7-8.2); eGFR > 60 See Note
[2025-04-08] MEDS: NA SU/NAHCO3/KC/PEG (Golytely) 4,000 ML BTL 4000 ML PO (07:02)
[2025-04-08] MEDS: ASCORBIC ACID 250 MG TABLET 500 MG PO ×2 (09:26→20:31)
[2025-04-08] MEDS: POLYETHYLENE GLYCOL 17 GM PACKET PO (09:26)
[2025-04-08] MEDS: METHADONE PO (09:26)
[2025-04-08] MEDS: ZINC SULFATE 220 MG CAPSULE PO (09:27)
[2025-04-08] MEDS: MULTIVITAMINS TABLET 1 TAB PO (09:27)
--- NOTE | 2025-04-08 11:54 | PC.SS ---
Addendum entered by CHYAN Magdaleno 04/08/25 15:09: Rounding note: colonoscopy today, pending SNF placement, SS will follow up with options once available. Original Note: SS update: PRODUCTION SUPPORT MANAGER met with patient at bedside to confirm dc plan home. PRODUCTION SUPPORT MANAGER provided housing resources for client. Patient stated she would now like SNF placement and does not have a preference. Patient stated that she has been diagnosed with anxiety and depression and is currently taking medication for anxiety. PRODUCTION SUPPORT MANAGER completed PASRR level 2, PRODUCTION SUPPORT MANAGER submitted SNF referral via [employer], pending responses. PRODUCTION SUPPORT MANAGER notified team B doctors that patient would now like SNF.
--- NOTE | 2025-04-08 12:11 | ESPR_ITS ---
<Statement entered by Amarjit Rivas MD - 04/08/25 12:59> I have discussed and was present for the essential components of the history, physical examination, diagnosis, and treatment plan with the resident. I agree with the patient's care as documented by the resident and amended herein by me. Amarjit Rivas MD FACP. Documentation for date of: 04/08/25 Subjective Subjective Interval history: Seen and examined at bedside. No acute overnight events. Labs and vitals stable, hemoglobin up trended from 8-9.5, patient stable on GoLytely bowel preparation, hopefully tomorrow evening patient will have a colonoscopy. GI is on board, recommendations appreciated. Exam Vital Signs Temp Pulse Resp BP Pulse Ox O2 Del Method O2 Flow Rate 97.1 F 69 15 120/87 H 93 L Room Air 3 04/08/25 08:00 04/08/25 09:27 04/08/25 08:00 04/08/25 09:27 04/08/25 08:00 04/08/25 08:00 04/05/25 20:15 Narrative Exam GENERAL: NAD, AAOx3, morbidly obese HEENT: Moist mucosa. EOMI. Neck supple. No ear discharge. Oral mucosa clear. CARDIO: Regular rate and rhythm. S1 + S2. No Murmurs. Euvolemic. JVP not elevated. PULM: Good air entry bilaterally. No wheezes/crackles. GI: Abdomen soft, nondistended, Tenderness on palpation of suprapubic. SKIN/MSK/EXT: Pale. No wounds/rashes/amputations, no pain on palpation. Noonpitting edema on B/L legs upto thighs. Pedal pulses present B/L. NEURO: AAOx3, no focal neuro deficits, able to move all 4 extremities. PSYCH: Coherent thoughts, no flight of ideas Objective Labs 04/08/25 05:15 04/08/25 05:15 Labs: Laboratory Results - last 24 hr 04/08/25 05:15 WBC 3.2 L RBC 3.55 L Hgb 9.5 L Hct 30.5 L MCV 86 MCH 26.8 MCHC 31.1 RDW Std Deviation 49.4 H Plt Count 229 Neut % (Auto) 55 Lymph % (Auto) 37 [place] % (Auto) 5 Eos % (Auto) 2 Baso % (Auto) 1 Neut # (Auto) 1.8 Lymph # (Auto) 1.2 [place] # (Auto) 0.2 Eos # (Auto) 0.1 Baso # (Auto) 0.0 Immature Gran # (Auto) 0.01 H Absolute Nucleated RBC 0.00 Immature Gran % 0 Nucleated RBC % 0 Sodium 137 Potassium 4.2 D Chloride 99 Carbon Dioxide 26.9 Anion Gap 11 BUN < 5 L Creatinine 0.9 Estim Creat Clear Calc 107.5 eGFR > 60 BUN/Creatinine Ratio 6 L Glucose 75 Calculated Osmolality 270 L Calcium 8.9 Corrected Calcium 9.5 Total Bilirubin 1.1 AST 16 ALT < 7 L Alkaline Phosphatase 106 Total Protein 6.0 Albumin 3.2 L Globulin 2.8 Albumin/Globulin Ratio 1.1 L ABG Interpretation ABG results: 04/04/25 20:25 VBG pH 7.43 VBG pCO2 39 VBG pO2 37 VBG Base Excess 1 Quality Measures Quality Measures VTE prophylaxis Assessment & Plan Assessment Current Active Medications: Generic Name Dose Route Start Last Admin Trade Name Freq PRN Reason Stop Dose Admin Acetaminophen 650 mg 04/05/25 02:26 Acetaminophen 325 Mg Tablet PO 05/05/25 02:25 Q6H PRN Fever >100.4 Acetaminophen 650 mg 04/05/25 02:26 Acetaminophen 325 Mg Tablet PO 05/05/25 02:25 On Hold: 04/06/25 08:42 Q6H PRN Comment: DILAUDID IV ACTIVE. PAIN SCALE 1-3 (mild Amlodipine Besylate 5 mg 04/08/25 09:00 04/08/25 09:27 Amlodipine Besylate 2.5 Mg Tablet PO 05/08/25 08:59 5 mg QDAY DREW Administration Ascorbic Acid 500 mg 04/06/25 14:30 04/08/25 09:26 Ascorbic Acid 250 Mg Tablet PO 05/06/25 14:29 500 mg BID DREW Administration Methadone 109 Mg 0 ea 04/07/25 09:00 04/08/25 09:26 Solution PO 04/08/25 15:00 1 solution QDAY DREW Administration Protocol Levetiracetam 500 mg 04/05/25 09:00 04/08/25 09:27 Levetiracetam 250 Mg Tablet PO 05/05/25 08:59 500 mg BID DREW Administration Methadone HCl 109 mg 04/09/25 09:00 Methadone Solution 1 Mg/1 Ml PO 04/14/25 08:59 QDAY DREW Multivitamins 1 tab 04/06/25 14:30 04/08/25 09:27 Multivitamins Tablet PO 05/06/25 14:29 1 tab QDAY DREW Administration Ondansetron HCl 4 mg 04/05/25 02:26 04/06/25 09:45 Ondansetron Inj 2 Mg/Ml Inj 2 Ml IVP 05/05/25 02:25 4 mg Q6H PRN Administration NAUSEA OR VOMITING Protocol Pantoprazole Sodium 40 mg 04/05/25 09:00 04/08/25 09:26 Pantoprazole Inj 40 Mg Vial IVP 05/05/25 08:59 40 mg BID DREW Administration Polyethylene Glycol 17 gm 04/05/25 14:30 04/08/25 09:26 Polyethylene Glycol 17 Gm Packet PO 05/05/25 14:29 17 gm QDAY DREW Administration Sennosides 1 tab 04/05/25 14:30 04/08/25 09:27 Senna Tablet PO 05/05/25 14:29 1 tab QDAY DREW Administration Protocol Sertraline HCl 150 mg 04/05/25 21:00 04/07/25 21:37 Sertraline Hcl 25 Mg Tablet PO 05/05/25 20:59 150 mg HS DREW Administration Zinc Sulfate 220 mg 04/06/25 14:30 04/08/25 09:27 Zinc Sulfate 220 Mg Capsule PO 04/20/25 14:29 220 mg QDAY DREW Administration Plan 45 year old female with past medical history of gastric sleeve surgery, 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 She was admitted for symptomatic anemia. #GI bleed #Symptomatic anemia. Lower GI bleed DDx: Diverticular disease, Hemorroids/Anal Fissures/ Colitis/Angiodysplasia Shortness of breath on exertion, bilateral leg swelling, melena, hematemesis for the last 3 months Blood smear sent to pathology Patient received 2 units of PRBC given in ED for hemoglobin of 6.2 BNP negative, euvolemic, no JVP elevation - less likely new dx of CHF EGD performed 04/05 unremarkable no sources of bleeding identified Plan: ?Gastroenterology consulted, Dr. Jose, colonoscopy planned for tonight #History of chronic hip pain Patient is on methadone 109 mg daily and gets it refilled every 2 weeks at the pain clinic Plan: ? Restarted patient's home methadone ? Discontinued all other pain medications #Bilateral nonobstructing renal calculi Multiple renal calculi less than 5 mm. ~1-3mm found on abdominal CT ? Follow-up outpatient for further evaluation #Seizure Disorder - Continue Keppra home dose 500 mg twice daily #Anxiety/depression - Continue sertraline home dose 150 mg daily Health maintenance: Code status: Full DVT prophylaxis: SCD. Diet: Clear liquid diet/GoLytely Disposition: Med tele. Patient care was discussed with attending physician Dr. Rob Blanc MD PGY-3
[2025-04-08] MEDS: SODIUM CHLORIDE 0.9% 500 ML 500 ML 20 ML IV (17:15)
[2025-04-08] MEDS: LIDOCAINE JELLY 2% (Urojet) 10 ML TUBE 5 ML TOP (17:33)
--- NOTE | 2025-04-08 17:55 | SUR.PHASEI ---
[id number] patient arrived to recovery, report received from Annie YI
--- NOTE | 2025-04-08 18:27 | SUR.PHASEI ---
1823 Report given to Katheryn YI, patient meets discharge criteria from recovery, awake and talking with staff, breathing unlabored, vital signs stable, denies pain and nausea, eating ice chips; tolerating well, urinary catheter in place with leg secure; draining to gravity 1826 patient transported via gurney to room 365 without incident
--- NOTE | 2025-04-08 19:39 | PC.NURSE ---
MD Jose came and verified diet order, per pt will be on regular diet.
[2025-04-08] MEDS: SERTRALINE HCL 25 MG TABLET 150 MG PO (20:32)
[2025-04-09] VITALS (8 sets, daily range): BP systolic 102–120; BP diastolic 64–77; PULSE 61–87; RESP 16–19; TEMP 36.1–36.4; O2SAT 94–97; BMI 39.6
[2025-04-09 05:45] LABS: Basophils # (Auto) 0.0 Thou/mm3 (0.0-0.2); Basophils % (Auto) 1 % (0-2.5); Eosinophils # (Auto) 0.1 Thou/mm3 (0.0-0.5); Eosinophils % (Auto) 3 % (0-10); Hematocrit 28.0 % (36.0-46.0); Immature Granulocytes Auto 0.00 Thou/mm3 (0.00-0.00); Lymphocytes # (Auto) 1.2 Thou/mm3 (1.0-4.8); Lymphocytes % (Auto) 35 % (10-50); Mean Corpuscular HGB Conc 30.7 g/dl (31.0-37.0); Mean Corpuscular Hemoglobin 26.7 pg (25.0-35.0); Mean Corpuscular Volume 87 fL (80-100); Monocytes # (Auto) 0.3 Thou/mm3 (0.0-0.8); Monocytes % (Auto) 7 % (0-12); Neutrophils # (Auto) 1.8 Thou/mm3 (1.8-7.7); Neutrophils % (Auto) 54 % (37-80); Nucleated Red Blood Cell # 0.00 Thou/mm3 (0.00-0.00); Nucleated Red Blood Cell % 0 /100 WBC (0); Platelet Count 223 Thou/mm3 (140-440); RDW Standard Deviation 50.6 fL (36.4-46.3); Red Blood Count 3.22 Miln/mm3 (4.00-5.20); White Blood Count 3.4 Thou/mm3 (3.6-11.0)
[2025-04-09 06:06] LABS: Alanine Aminotransferase < 7 U/L (10-49); Albumin, Serum 3.2 gm/dL (3.5-5.0); Albumin/Globulin Ratio 1.2 (1.2-2.2); Alkaline Phosphatase 97 U/L (46-116); Anion Gap 8 (7-16); Aspartate Amino Transferase 20 U/L (0-34); BUN/Creatinine Ratio 8 Ratio (12-20); Bilirubin,Total 0.9 mg/dL (0.3-1.2); Blood Urea Nitrogen 7 mg/dL (9-23); Calcium 8.9 mg/dL (8.3-10.6); Calcium (Corrected) 9.5 mg/dL (8.5-10.1); Carbon Dioxide 29.5 mMol/L (20.0-31.0); Chloride 103 mMol/L (98-107); Creatinine (Component) 0.9 mg/dL (0.6-1.3); Estimated Creatinine Clearance 107.5 mL/min (>60); Globulin 2.6 gm/dL (2.3-3.5); Glucose 77 mg/dL (74-106); Osmolality,Calculated 276 (275-295); Potassium 4.7 mMol/L (3.4-5.1); Sodium 140 mMol/L (136-145); Total Protein 5.8 gm/dL (5.7-8.2); eGFR > 60 See Note
[2025-04-09 09:18] LABS: Hemoglobin 8.6 g/dL (12.0-16.0)
[2025-04-09] MEDS: ASCORBIC ACID 250 MG TABLET 500 MG PO ×2 (09:26→20:38)
[2025-04-09] MEDS: MULTIVITAMINS TABLET 1 TAB PO (09:27)
[2025-04-09] MEDS: ZINC SULFATE 220 MG CAPSULE PO (09:27)
[2025-04-09] MEDS: METHADONE SOLUTION 1 MG/1 ML 109 MG PO (09:27)
--- NOTE | 2025-04-09 10:29 | PC.SS ---
Follow up note: SS met with pt and provided her with the Community Resource List which contains SNF options. Pt was accepted to [facility] and [facility]. Patient's choice is [facility]. SS has spoke to Radha from [facility] and she is starting insurance authorization. PASRR assessment has been sent to [facility] using [employer] [facility].
[2025-04-09] MEDS: ONDANSETRON INJ 2 MG/ML INJ 2 ML 4 MG IVP (10:55)
--- NOTE | 2025-04-09 13:26 | PD.RESDS ---
Planned Discharge Date 04/09/25 DS: Providers Provider Date of admission: 04/05/25 02:21 Primary care physician: Physician No Primary/Family Admitting Provider: Amarjit Rivas MD Attending Provider on Admission: Hany Ramirez MD Consults: 04/05/25 01:03 Consult to Gastroenterology Stat Comment: GI bleed Consulting Provider: Shyla Jose 04/05/25 06:00 Health Equity Referral - Transportation Routine Comment: Positive screening for transportation needs. Health Equity Referral - Utilities Routine Comment: Positive screening for utility assistance needs. 04/05/25 06:30 Referral Wound Care Routine Comment: 04/05/25 06:31 Referral Registered Dietitian Routine Comment: 04/05/25 11:22 Referral Physical Therapy Routine Comment: Physician Instructions: Attending Provider on DC: Gregory Iqbal MD Discharging Provider: Gregory Iqbal MD Hospital Course Hospital Course Hospital course: Seen and examined at bedside. No acute overnight events. Labs and vitals stable, hemoglobin up trended from 8-9.5, patient stable on GoLytely bowel preparation, hopefully tomorrow evening patient will have a colonoscopy. GI is on board, recommendations appreciated. Time Spent with Patient Time attestation: Total time spent providing and/or coordinating discharge services: Exam Vital Signs Temp Pulse Resp BP Pulse Ox O2 Del Method O2 Flow Rate 97.0 F 77 19 113/64 95 Room Air 3 04/09/25 08:00 04/09/25 12:00 04/09/25 08:00 04/09/25 09:26 04/09/25 08:00 04/09/25 08:00 04/08/25 17:49 Discharge Plan Plan Patient Disposition: Home w/HOME HEALTH Patient condition on transfer: Stable Care Plan Goals: Please continue to take vitamin C, multivitamin and zinc sulfate for nutritional needs Continue all other home medications as prescribed Please follow-up with your PCP within 1 week of discharge or follow-up at the [facility] [address] [place] [address] Ask your PCP to follow-up with a CBC as you have some leukopenia that warrants outpatient hematology workup If your symptoms worsen or if you start to develop new chest pain, shortness of breath, severe abdominal pain or bleeding - please come back to the ED immediately Prescriptions/Referrals Prescriptions/Med Rec: New ascorbic acid (vitamin C) [Vitamin C] 250 mg Tablet 500 mg PO BID 30 Days Qty: 120 0RF multivitamin with folic acid [Tab-A-Bandar] 400 mcg Tablet 1 tab PO QDAY 30 Days Qty: 30 0RF zinc sulfate 50 mg zinc (220 mg) Capsule 220 mg PO QDAY 14 Days Qty: 62 0RF Continued levetiracetam [Keppra] 500 MG tablet 500 mg PO BID Qty: 0 sertraline [Zoloft] 100 MG tablet 150 mg PO HS Qty: 0 omeprazole 20 MG capsule,delayed release(DR/EC) 20 mg PO QDAY Qty: 0 ferrous sulfate, dried 160 mg (50 mg iron) tablet extended release 160 mg PO TID Qty: 90 0RF Referrals: No Primary/Family,Physician [Primary Care Provider] Outpatient Orders (i.e. Home Health, Labs, Imaging): CBC (Routine) Timeframe: 1 Week Location: None Selected Ordered By: Andrea Jimenez Patient/Caregiver Discharge Instructions Education Materials: Abdominal Pain, Complementary Care for Pain, Communicating About Pain Print Language: Nepali Stand Alone Forms: Marely Award Info., Patient Portal Info Letter
--- NOTE | 2025-04-09 16:29 | ESPR_ITS ---
Documentation for date of: 04/09/25 Subjective Subjective Interval history: Seen and examined at bedside. No acute overnight events. Labs and vitals stable, hemoglobin stable. Patient has GERD sx. Neck stiffness from prior EGD. Cyclobenzaprine PRN added. Exam Vital Signs Temp Pulse Resp BP Pulse Ox O2 Del Method O2 Flow Rate 97.0 F 61 18 117/77 96 Room Air 3 04/09/25 12:00 04/09/25 16:00 04/09/25 12:00 04/09/25 12:00 04/09/25 12:00 04/09/25 12:00 04/08/25 17:49 Narrative Exam GENERAL: NAD, AAOx3, morbidly obese HEENT: Moist mucosa. EOMI. Neck supple. No ear discharge. Oral mucosa clear. CARDIO: Regular rate and rhythm. S1 + S2. No Murmurs. Euvolemic. JVP not elevated. PULM: Good air entry bilaterally. No wheezes/crackles. GI: Abdomen soft, nondistended, Tenderness on palpation of suprapubic. SKIN/MSK/EXT: Pale. No wounds/rashes/amputations, no pain on palpation. Noonpitting edema on B/L legs upto thighs. Pedal pulses present B/L. NEURO: AAOx3, no focal neuro deficits, able to move all 4 extremities. PSYCH: Coherent thoughts, no flight of ideas Objective Labs 04/09/25 05:22 04/10/25 04:16 Labs: Laboratory Results - last 24 hr 04/09/25 05:22 WBC 3.4 L RBC 3.22 L Hgb 8.6 L Hct 28.0 L MCV 87 MCH 26.7 MCHC 30.7 L RDW Std Deviation 50.6 H Plt Count 223 Neut % (Auto) 54 Lymph % (Auto) 35 [place] % (Auto) 7 Eos % (Auto) 3 Baso % (Auto) 1 Neut # (Auto) 1.8 Lymph # (Auto) 1.2 [place] # (Auto) 0.3 Eos # (Auto) 0.1 Baso # (Auto) 0.0 Immature Gran # (Auto) 0.00 Absolute Nucleated RBC 0.00 Immature Gran % 0 Nucleated RBC % 0 Sodium 140 Potassium 4.7 D Chloride 103 Carbon Dioxide 29.5 Anion Gap 8 BUN 7 L Creatinine 0.9 Estim Creat Clear Calc 107.5 eGFR > 60 BUN/Creatinine Ratio 8 L Glucose 77 Calculated Osmolality 276 Calcium 8.9 Corrected Calcium 9.5 Total Bilirubin 0.9 AST 20 ALT < 7 L Alkaline Phosphatase 97 Total Protein 5.8 Albumin 3.2 L Globulin 2.6 Albumin/Globulin Ratio 1.2 ABG Interpretation ABG results: 04/04/25 20:25 VBG pH 7.43 VBG pCO2 39 VBG pO2 37 VBG Base Excess 1 Quality Measures Quality Measures VTE prophylaxis Assessment & Plan Assessment Current Active Medications: Generic Name Dose Route Start Last Admin Trade Name Freq PRN Reason Stop Dose Admin Acetaminophen 650 mg 04/05/25 02:26 Acetaminophen 325 Mg Tablet PO 05/05/25 02:25 Q6H PRN Fever >100.4 Acetaminophen 650 mg 04/05/25 02:26 Acetaminophen 325 Mg Tablet PO 05/05/25 02:25 On Hold: 04/06/25 08:42 Q6H PRN Comment: DILAUDID IV ACTIVE. PAIN SCALE 1-3 (mild Amlodipine Besylate 5 mg 04/08/25 09:00 04/09/25 09:26 Amlodipine Besylate 2.5 Mg Tablet PO 05/08/25 08:59 5 mg QDAY DREW Administration Ascorbic Acid 500 mg 04/06/25 14:30 04/09/25 09:26 Ascorbic Acid 250 Mg Tablet PO 05/06/25 14:29 500 mg BID DREW Administration Cyclobenzaprine HCl 10 mg 04/09/25 13:28 Cyclobenzaprine 5 Mg Tablet PO 05/09/25 13:27 BID PRN MUSCLE SPASMS Sodium Chloride 500 mls @ 20 mls/hr 04/08/25 17:15 04/08/25 17:15 Ns IV 04/09/25 17:14 20 mls/hr .Q24H ONE Administration Levetiracetam 500 mg 04/05/25 09:00 04/09/25 09:27 Levetiracetam 250 Mg Tablet PO 05/05/25 08:59 500 mg BID DREW Administration Methadone HCl 109 mg 04/09/25 09:00 04/09/25 09:27 Methadone Solution 1 Mg/1 Ml PO 04/14/25 08:59 109 mg QDAY DREW Administration Multivitamins 1 tab 04/06/25 14:30 04/09/25 09:27 Multivitamins Tablet PO 05/06/25 14:29 1 tab QDAY DREW Administration Ondansetron HCl 4 mg 04/05/25 02:26 04/09/25 10:55 Ondansetron Inj 2 Mg/Ml Inj 2 Ml IVP 05/05/25 02:25 4 mg Q6H PRN Administration NAUSEA OR VOMITING Protocol Pantoprazole Sodium 40 mg 04/10/25 09:00 Pantoprazole 40 Mg Tablet PO 05/10/25 08:59 QDAY DREW Polyethylene Glycol 17 gm 04/05/25 14:30 04/09/25 09:33 Polyethylene Glycol 17 Gm Packet PO 05/05/25 14:29 Not Given QDAY DREW Sennosides 1 tab 04/05/25 14:30 04/09/25 09:26 Senna Tablet PO 05/05/25 14:29 1 tab QDAY DREW Administration Protocol Sertraline HCl 150 mg 04/05/25 21:00 04/08/25 20:32 Sertraline Hcl 25 Mg Tablet PO 05/05/25 20:59 150 mg HS DREW Administration Zinc Sulfate 220 mg 04/06/25 14:30 04/09/25 09:27 Zinc Sulfate 220 Mg Capsule PO 04/20/25 14:29 220 mg QDAY DREW Administration Plan 45 year old female with past medical history of gastric sleeve surgery, 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 She was admitted for symptomatic anemia. #GI bleed #Symptomatic anemia, resolved Lower GI bleed DDx: Diverticular disease, Hemorroids/Anal Fissures/ Colitis/Angiodysplasia Shortness of breath on exertion, bilateral leg swelling, melena, hematemesis for the last 3 months Blood smear sent to pathology Patient received 2 units of PRBC given in ED for hemoglobin of 6.2 BNP negative, euvolemic, no JVP elevation - less likely new dx of CHF EGD performed 04/05 unremarkable no sources of bleeding identified Colonoscopy 04/08 showed hemorrhoids and diverticulosis, but no diverticular bleeding Plan: ?Gastroenterology consulted, Dr. Jose, see recs #History of chronic hip pain Patient is on methadone 109 mg daily and gets it refilled every 2 weeks at the pain clinic Plan: ? Restarted patient's home methadone ? Discontinued all other pain medications #Bilateral nonobstructing renal calculi Multiple renal calculi less than 5 mm. ~1-3mm found on abdominal CT ? Follow-up outpatient for further evaluation #Seizure Disorder - Continue Keppra home dose 500 mg twice daily #Anxiety/depression - Continue sertraline home dose 150 mg daily Health maintenance: Code status: Full DVT prophylaxis: SCD. GI ppx: Protonix 40mg qday Diet: reg diet Disposition: Med tele. Case discussed with my attending Dr. Ramirez, and senior resident, Dr. Barbara Iqbal MD PGY-1 Attending Provider Attestation/Addendum I reviewed labs, imaging, EKG, home medications and prior available records. Face to face evaluation was performed by me. I have personally examined the patient and discussed assessment and plan with the IM team. I reviewed the resident note and agree with the plan with exceptions as below. Symptomatic anemia Possible GI bleed GERD Colonoscopy showed hemorrhoids and diverticulosis H&H is stable PT recommended SNF versus home health. 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 Add Reglan
[2025-04-09] MEDS: ACETAMINOPHEN 325 MG TABLET 650 MG PO (17:02)
--- NOTE | 2025-04-09 19:22 | ESPR_ITS ---
Documentation for date of: 04/09/25 Subjective Subjective Interval history: Patient evaluated Patient's iron deficiency anemia low hemoglobin hematocrit is due to Mariposa-en-Y gastrojejunostomy She should be sent home on iron 325 mg p.o. 3 times daily along with vitamin C tablets 500 mg to be taken together for absorption of the iron Exam Vital Signs Temp Pulse Resp BP Pulse Ox O2 Del Method O2 Flow Rate 97.4 F 72 17 120/72 97 Room Air 3 04/09/25 16:00 04/09/25 16:00 04/09/25 16:00 04/09/25 16:00 04/09/25 16:00 04/09/25 16:00 04/08/25 17:49 Objective Labs 04/09/25 05:22 04/09/25 05:22 Labs: Laboratory Results - last 24 hr 04/09/25 05:22 WBC 3.4 L RBC 3.22 L Hgb 8.6 L Hct 28.0 L MCV 87 MCH 26.7 MCHC 30.7 L RDW Std Deviation 50.6 H Plt Count 223 Neut % (Auto) 54 Lymph % (Auto) 35 [place] % (Auto) 7 Eos % (Auto) 3 Baso % (Auto) 1 Neut # (Auto) 1.8 Lymph # (Auto) 1.2 [place] # (Auto) 0.3 Eos # (Auto) 0.1 Baso # (Auto) 0.0 Immature Gran # (Auto) 0.00 Absolute Nucleated RBC 0.00 Immature Gran % 0 Nucleated RBC % 0 Sodium 140 Potassium 4.7 D Chloride 103 Carbon Dioxide 29.5 Anion Gap 8 BUN 7 L Creatinine 0.9 Estim Creat Clear Calc 107.5 eGFR > 60 BUN/Creatinine Ratio 8 L Glucose 77 Calculated Osmolality 276 Calcium 8.9 Corrected Calcium 9.5 Total Bilirubin 0.9 AST 20 ALT < 7 L Alkaline Phosphatase 97 Total Protein 5.8 Albumin 3.2 L Globulin 2.6 Albumin/Globulin Ratio 1.2 Impressions Impression: Status post Mariposa-en-Y gastrojejunostomy most likely the cause of her anemia Diverticulosis: Left colon Internal hemorrhoids Plan as under assessment ABG Interpretation ABG results: 04/04/25 20:25 VBG pH 7.43 VBG pCO2 39 VBG pO2 37 VBG Base Excess 1 Assessment & Plan Time Spent With Patient Time: Total time spent is greater than 50% in coordination of care (as documented) at patient's floor/unit and/or counseling patient:
[2025-04-09] MEDS: SERTRALINE HCL 25 MG TABLET 150 MG PO (21:55)
[2025-04-10] VITALS (10 sets, daily range): BP systolic 112–124; BP diastolic 72–79; PULSE 66–102; RESP 12–20; TEMP 36–36.2; O2SAT 93–98
[2025-04-10 06:07] LABS: Alanine Aminotransferase < 7 U/L (10-49); Albumin, Serum 2.9 gm/dL (3.5-5.0); Albumin/Globulin Ratio 1.2 (1.2-2.2); Alkaline Phosphatase 91 U/L (46-116); Anion Gap 11 (7-16); Aspartate Amino Transferase 17 U/L (0-34); BUN/Creatinine Ratio 8 Ratio (12-20); Bilirubin,Total 0.7 mg/dL (0.3-1.2); Blood Urea Nitrogen 6 mg/dL (9-23); Calcium 8.3 mg/dL (8.3-10.6); Calcium (Corrected) 9.2 mg/dL (8.5-10.1); Carbon Dioxide 26.3 mMol/L (20.0-31.0); Chloride 103 mMol/L (98-107); Creatinine (Component) 0.8 mg/dL (0.6-1.3); Estimated Creatinine Clearance 120.4 mL/min (>60); Globulin 2.5 gm/dL (2.3-3.5); Glucose 74 mg/dL (74-106); Osmolality,Calculated 276 (275-295); Potassium 4.0 mMol/L (3.4-5.1); Sodium 140 mMol/L (136-145); Total Protein 5.4 gm/dL (5.7-8.2); eGFR > 60 See Note
[2025-04-10 08:43] LABS: Basophils # (Auto) 0.0 Thou/mm3 (0.0-0.2); Basophils % (Auto) 1 % (0-2.5); Eosinophils # (Auto) 0.1 Thou/mm3 (0.0-0.5); Eosinophils % (Auto) 2 % (0-10); Hematocrit 31.4 % (36.0-46.0); Hemoglobin 9.6 g/dL (12.0-16.0); Immature Granulocytes Auto 0.01 Thou/mm3 (0.00-0.00); Lymphocytes # (Auto) 1.5 Thou/mm3 (1.0-4.8); Lymphocytes % (Auto) 43 % (10-50); Mean Corpuscular HGB Conc 30.6 g/dl (31.0-37.0); Mean Corpuscular Hemoglobin 26.7 pg (25.0-35.0); Mean Corpuscular Volume 87 fL (80-100); Monocytes # (Auto) 0.2 Thou/mm3 (0.0-0.8); Monocytes % (Auto) 7 % (0-12); Neutrophils # (Auto) 1.6 Thou/mm3 (1.8-7.7); Neutrophils % (Auto) 47 % (37-80); Nucleated Red Blood Cell # 0.00 Thou/mm3 (0.00-0.00); Nucleated Red Blood Cell % 0 /100 WBC (0); Platelet Count 229 Thou/mm3 (140-440); RDW Standard Deviation 51.7 fL (36.4-46.3); Red Blood Count 3.60 Miln/mm3 (4.00-5.20); White Blood Count 3.4 Thou/mm3 (3.6-11.0)
[2025-04-10] MEDS: ZINC SULFATE 220 MG CAPSULE PO (08:50)
[2025-04-10] MEDS: ASCORBIC ACID 250 MG TABLET 500 MG PO ×2 (08:50→20:03)
[2025-04-10] MEDS: PANTOPRAZOLE 40 MG TABLET PO (08:50)
[2025-04-10] MEDS: MULTIVITAMINS TABLET 1 TAB PO (08:50)
[2025-04-10] MEDS: POLYETHYLENE GLYCOL 17 GM PACKET PO (08:51)
[2025-04-10] MEDS: METHADONE SOLUTION 1 MG/1 ML 109 MG PO (09:28)
--- NOTE | 2025-04-10 11:39 | PD.RESDS ---
Planned Discharge Date 04/10/25 DS: Providers Provider Date of admission: 04/05/25 02:21 Primary care physician: Physician No Primary/Family Admitting Provider: Amarjit Rivas MD Attending Provider on Admission: Hany Ramirez MD Consults: 04/05/25 01:03 Consult to Gastroenterology Stat Comment: GI bleed Consulting Provider: Shyla Jose 04/05/25 06:00 Health Equity Referral - Transportation Routine Comment: Positive screening for transportation needs. Health Equity Referral - Utilities Routine Comment: Positive screening for utility assistance needs. 04/05/25 06:30 Referral Wound Care Routine Comment: 04/05/25 06:31 Referral Registered Dietitian Routine Comment: 04/05/25 11:22 Referral Physical Therapy Routine Comment: Physician Instructions: Attending Provider on DC: Hany Ramirez MD Discharging Provider: Hany Ramirez MD Hospital Course Hospital Course Hospital course: ED course: The patient presented with stable vital signs, which included a BP of 135/76, HR of 89, RR of 20, and an O2 saturation of 99% on room air, with a temperature that measured 97.9?F. Pertinent laboratory findings demonstrated significant anemia with a hemoglobin of 6.2 g/dL and hematocrit of 20.4% , along with mild hypoalbuminemia (albumin 2.9 g/dL and total protein 5.2 g/dL). Imaging was largely unremarkable: the EKG showed normal sinus rhythm, and both the Venous Doppler and Chest CTA were normal; however, a CT abdomen/pelvis revealed numerous bilateral non-obstructing renal calculi. Discharge instructions: - Please continue to take vitamin C, multivitamin and zinc sulfate for nutritional needs - Continue all other home medications as prescribed - Please follow-up with your PCP within 1 week of discharge or follow-up at the [facility] [address] [place] [address] - Ask your PCP to follow-up with a CBC as you have some leukopenia that warrants outpatient hematology workup - If your symptoms worsen or if you start to develop new chest pain, shortness of breath, severe abdominal pain or bleeding - please come back to the ED immediately Admission diagnoses #GI bleed, ruled out #Symptomatic anemia, resolved #History of chronic hip pain #Bilateral nonobstructing renal calculi #History of Seizure Disorder #History of Anxiety/depression Case discussed with my attending Dr. Ramirez, and senior resident, Dr. Barbara Iqbal MD PGY-1 Status at Discharge Overall status at discharge: patient is progressing back to baseline Time Spent with Patient Time attestation: Total time spent providing and/or coordinating discharge services: Time spent: Greater than 30 minutes Exam Vital Signs Temp Pulse Resp BP Pulse Ox O2 Del Method O2 Flow Rate 97.0 F 74 14 117/73 94 L Room Air 3 04/10/25 07:50 04/10/25 08:50 04/10/25 07:50 04/10/25 08:50 04/10/25 07:50 04/10/25 07:50 04/08/25 17:49 Narrative Exam GENERAL: NAD, AAOx3, morbidly obese HEENT: Moist mucosa. EOMI. Neck supple. No ear discharge. Oral mucosa clear. CARDIO: Regular rate and rhythm. S1 + S2. No Murmurs. Euvolemic. JVP not elevated. PULM: Good air entry bilaterally. No wheezes/crackles. GI: Abdomen soft, nondistended, Tenderness on palpation of suprapubic. SKIN/MSK/EXT: Pale. No wounds/rashes/amputations, no pain on palpation. Noonpitting edema on B/L legs upto thighs. Pedal pulses present B/L. NEURO: AAOx3, no focal neuro deficits, able to move all 4 extremities. PSYCH: Coherent thoughts, no flight of ideas Discharge Plan Plan Patient Disposition: Home w/HOME HEALTH Patient condition on transfer: Stable Care Plan Goals: Please continue to take vitamin C, multivitamin and zinc sulfate for nutritional needs Continue all other home medications as prescribed Please follow-up with your PCP within 1 week of discharge or follow-up at the [facility] [address] [place] [address] Ask your PCP to follow-up with a CBC as you have some leukopenia that warrants outpatient hematology workup If your symptoms worsen or if you start to develop new chest pain, shortness of breath, severe abdominal pain or bleeding - please come back to the ED immediately Prescriptions/Referrals Prescriptions/Med Rec: New ascorbic acid (vitamin C) [Vitamin C] 250 mg Tablet 500 mg PO BID 30 Days Qty: 120 0RF multivitamin with folic acid [Tab-A-Bandar] 400 mcg Tablet 1 tab PO QDAY 30 Days Qty: 30 0RF zinc sulfate 50 mg zinc (220 mg) Capsule 220 mg PO QDAY 14 Days Qty: 62 0RF Continued levetiracetam [Keppra] 500 MG tablet 500 mg PO BID Qty: 0 sertraline [Zoloft] 100 MG tablet 150 mg PO HS Qty: 0 omeprazole 20 MG capsule,delayed release(DR/EC) 20 mg PO QDAY Qty: 0 ferrous sulfate, dried 160 mg (50 mg iron) tablet extended release 160 mg PO TID Qty: 90 0RF Referrals: No Primary/Family,Physician [Primary Care Provider] Outpatient Orders (i.e. Home Health, Labs, Imaging): CBC (Routine) Timeframe: 1 Week Location: None Selected Ordered By: Andrea Jimenez Patient/Caregiver Discharge Instructions Education Materials: Abdominal Pain, Complementary Care for Pain, Communicating About Pain Print Language: Ethiopian Stand Alone Forms: Marely Award Info., Patient Portal Info Letter
--- NOTE | 2025-04-10 14:11 | PD.RESPRO ---
Documentation for date of: 04/10/25 Subjective Subjective Interval history: Seen and examined at bedside. No acute overnight events. Labs and vitals stable, hemoglobin stable. Patient has GERD sx. Migranes, gave reglan and benadryl x1. Exam Vital Signs Temp Pulse Resp BP Pulse Ox O2 Del Method O2 Flow Rate 97.1 F 86 14 112/72 95 Room Air 3 04/10/25 12:00 04/10/25 12:00 04/10/25 12:00 04/10/25 12:00 04/10/25 12:00 04/10/25 12:00 04/08/25 17:49 Narrative Exam GENERAL: NAD, AAOx3, morbidly obese HEENT: Moist mucosa. EOMI. Neck supple. No ear discharge. Oral mucosa clear. CARDIO: Regular rate and rhythm. S1 + S2. No Murmurs. Euvolemic. JVP not elevated. PULM: Good air entry bilaterally. No wheezes/crackles. GI: Abdomen soft, nondistended, Tenderness on palpation of suprapubic. SKIN/MSK/EXT: Pale. No wounds/rashes/amputations, no pain on palpation. Noonpitting edema on B/L legs upto thighs. Pedal pulses present B/L. NEURO: AAOx3, no focal neuro deficits, able to move all 4 extremities. PSYCH: Coherent thoughts, no flight of ideas Objective Labs 04/11/25 04:40 04/11/25 04:40 Labs: Laboratory Results - last 24 hr 04/10/25 04/10/25 04:16 08:20 WBC Cancelled 3.4 L RBC Cancelled 3.60 L Hgb Cancelled 9.6 L Hct Cancelled 31.4 L MCV Cancelled 87 MCH Cancelled 26.7 MCHC Cancelled 30.6 L RDW Std Deviation Cancelled 51.7 H Plt Count Cancelled 229 Neut % (Auto) Cancelled 47 Lymph % (Auto) Cancelled 43 [place] % (Auto) Cancelled 7 Eos % (Auto) Cancelled 2 Baso % (Auto) Cancelled 1 Neut # (Auto) Cancelled 1.6 L Lymph # (Auto) Cancelled 1.5 [place] # (Auto) Cancelled 0.2 Eos # (Auto) Cancelled 0.1 Baso # (Auto) Cancelled 0.0 Immature Gran # (Auto) Cancelled 0.01 H Absolute Nucleated RBC Cancelled 0.00 Immature Gran % Cancelled 0 Nucleated RBC % Cancelled 0 Sodium 140 Potassium 4.0 D Chloride 103 Carbon Dioxide 26.3 Anion Gap 11 BUN 6 L Creatinine 0.8 Estim Creat Clear Calc 120.4 eGFR > 60 BUN/Creatinine Ratio 8 L Glucose 74 Calculated Osmolality 276 Calcium 8.3 Corrected Calcium 9.2 Total Bilirubin 0.7 AST 17 ALT < 7 L Alkaline Phosphatase 91 Total Protein 5.4 L Albumin 2.9 L Globulin 2.5 Albumin/Globulin Ratio 1.2 ABG Interpretation ABG results: 04/04/25 20:25 VBG pH 7.43 VBG pCO2 39 VBG pO2 37 VBG Base Excess 1 Quality Measures Quality Measures VTE prophylaxis Assessment & Plan Assessment Current Active Medications: Generic Name Dose Route Start Last Admin Trade Name Freq PRN Reason Stop Dose Admin Acetaminophen 650 mg 04/05/25 02:26 04/09/25 17:02 Acetaminophen 325 Mg Tablet PO 05/05/25 02:25 650 mg Q6H PRN Administration Fever >100.4 Acetaminophen 650 mg 04/05/25 02:26 Acetaminophen 325 Mg Tablet PO 05/05/25 02:25 On Hold: 04/06/25 08:42 Q6H PRN Comment: DILAUDID IV ACTIVE. PAIN SCALE 1-3 (mild Amlodipine Besylate 5 mg 04/08/25 09:00 04/10/25 08:50 Amlodipine Besylate 2.5 Mg Tablet PO 05/08/25 08:59 5 mg QDAY DREW Administration Ascorbic Acid 500 mg 04/06/25 14:30 04/10/25 08:50 Ascorbic Acid 250 Mg Tablet PO 05/06/25 14:29 500 mg BID DREW Administration Cyclobenzaprine HCl 10 mg 04/09/25 13:28 04/10/25 12:06 Cyclobenzaprine 5 Mg Tablet PO 05/09/25 13:27 10 mg BID PRN Administration MUSCLE SPASMS Diphenhydramine HCl 25 mg 04/10/25 14:09 Diphenhydramine 25 Mg Capsule PO 04/10/25 14:10 X1 ONE Levetiracetam 500 mg 04/05/25 09:00 04/10/25 08:50 Levetiracetam 250 Mg Tablet PO 05/05/25 08:59 500 mg BID DREW Administration Methadone HCl 109 mg 04/09/25 09:00 04/10/25 09:28 Methadone Solution 1 Mg/1 Ml PO 04/14/25 08:59 109 mg QDAY DREW Administration Metoclopramide HCl 10 mg 04/10/25 14:09 Metoclopramide 5 Mg Tablet PO 04/10/25 14:10 X1 ONE Multivitamins 1 tab 04/06/25 14:30 04/10/25 08:50 Multivitamins Tablet PO 05/06/25 14:29 1 tab QDAY DREW Administration Ondansetron HCl 4 mg 04/05/25 02:26 04/09/25 10:55 Ondansetron Inj 2 Mg/Ml Inj 2 Ml IVP 05/05/25 02:25 4 mg Q6H PRN Administration NAUSEA OR VOMITING Protocol Pantoprazole Sodium 40 mg 04/10/25 09:00 04/10/25 08:50 Pantoprazole 40 Mg Tablet PO 05/10/25 08:59 40 mg QDAY DREW Administration Polyethylene Glycol 17 gm 04/05/25 14:30 04/10/25 08:51 Polyethylene Glycol 17 Gm Packet PO 05/05/25 14:29 17 gm QDAY DREW Administration Sennosides 1 tab 04/05/25 14:30 04/10/25 08:50 Senna Tablet PO 05/05/25 14:29 1 tab QDAY DREW Administration Protocol Sertraline HCl 150 mg 04/05/25 21:00 04/09/25 21:55 Sertraline Hcl 25 Mg Tablet PO 05/05/25 20:59 150 mg HS DREW Administration Zinc Sulfate 220 mg 04/06/25 14:30 04/10/25 08:50 Zinc Sulfate 220 Mg Capsule PO 04/20/25 14:29 220 mg QDAY DREW Administration Plan 45 year old female with past medical history of gastric sleeve surgery, 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 She was admitted for symptomatic anemia. #GI bleed #Symptomatic anemia, resolved Lower GI bleed DDx: Diverticular disease, Hemorroids/Anal Fissures/ Colitis/Angiodysplasia Shortness of breath on exertion, bilateral leg swelling, melena, hematemesis for the last 3 months Blood smear sent to pathology Patient received 2 units of PRBC given in ED for hemoglobin of 6.2 BNP negative, euvolemic, no JVP elevation - less likely new dx of CHF EGD performed 04/05 unremarkable no sources of bleeding identified Colonoscopy 04/08 showed hemorrhoids and diverticulosis, but no diverticular bleeding Plan: ?Gastroenterology consulted, Dr. Jose, see recs #Migraine Headache occurred 04/10 Plan - Benadryl 25mg x1 - Reglan 10mg x1 - Sumatriptan 25mg x1 #History of chronic hip pain Patient is on methadone 109 mg daily and gets it refilled every 2 weeks at the pain clinic Plan: ? Restarted patient's home methadone ? Discontinued all other pain medications #Bilateral nonobstructing renal calculi Multiple renal calculi less than 5 mm. ~1-3mm found on abdominal CT ? Follow-up outpatient for further evaluation #Seizure Disorder - Continue Keppra home dose 500 mg twice daily #Anxiety/depression - Continue sertraline home dose 150 mg daily Health maintenance: Code status: Full DVT prophylaxis: SCD GI ppx: Protonix 40mg qday Diet: reg diet Disposition: Med tele. Case discussed with my attending Dr. Ramirez, and senior resident, Dr. Barbara Iqbal MD PGY-1 Attending Provider Attestation/Addendum I reviewed labs, imaging, EKG, home medications and prior available records. Face to face evaluation was performed by me. I have personally examined the patient and discussed assessment and plan with the IM team. I reviewed the resident note and agree with the plan with exceptions as below. Symptomatic anemia Possible GI bleed GERD Migraine headaches Colonoscopy showed hemorrhoids and diverticulosis H&H is stable PT recommended SNF versus home health. 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 Add Reglan Pending [place] transitional placement
[2025-04-10] MEDS: METOCLOPRAMIDE 5 MG TABLET 10 MG PO (14:29)
--- NOTE | 2025-04-10 16:39 | PC.SS ---
SS spoke to Radha from [facility] who states she has pending insurance authorization number and will continue to follow up tomorrow for authorization. SS met with pt who is aware.
[2025-04-10] MEDS: SERTRALINE HCL 25 MG TABLET 150 MG PO (20:03)
[2025-04-10] MEDS: FERROUS SULF 325 MG TABLET PO (20:49)
[2025-04-11] VITALS (8 sets, daily range): BP systolic 113–156; BP diastolic 72–99; PULSE 69–91; RESP 12–20; TEMP 36.1–37; O2SAT 93–98
[2025-04-11 06:02] LABS: Basophils # (Auto) 0.0 Thou/mm3 (0.0-0.2); Basophils % (Auto) 1 % (0-2.5); Eosinophils # (Auto) 0.1 Thou/mm3 (0.0-0.5); Eosinophils % (Auto) 2 % (0-10); Hematocrit 31.9 % (36.0-46.0); Hemoglobin 9.7 g/dL (12.0-16.0); Immature Granulocytes Auto 0.01 Thou/mm3 (0.00-0.00); Lymphocytes # (Auto) 1.3 Thou/mm3 (1.0-4.8); Lymphocytes % (Auto) 32 % (10-50); Mean Corpuscular HGB Conc 30.4 g/dl (31.0-37.0); Mean Corpuscular Hemoglobin 26.9 pg (25.0-35.0); Mean Corpuscular Volume 89 fL (80-100); Monocytes # (Auto) 0.4 Thou/mm3 (0.0-0.8); Monocytes % (Auto) 9 % (0-12); Neutrophils # (Auto) 2.3 Thou/mm3 (1.8-7.7); Neutrophils % (Auto) 56 % (37-80); Nucleated Red Blood Cell # 0.00 Thou/mm3 (0.00-0.00); Nucleated Red Blood Cell % 0 /100 WBC (0); Platelet Count 244 Thou/mm3 (140-440); RDW Standard Deviation 53.3 fL (36.4-46.3); Red Blood Count 3.60 Miln/mm3 (4.00-5.20); White Blood Count 4.2 Thou/mm3 (3.6-11.0)
[2025-04-11 06:39] LABS: Alanine Aminotransferase < 7 U/L (10-49); Albumin, Serum 3.3 gm/dL (3.5-5.0); Albumin/Globulin Ratio 1.3 (1.2-2.2); Alkaline Phosphatase 97 U/L (46-116); Anion Gap 9 (7-16); Aspartate Amino Transferase 18 U/L (0-34); BUN/Creatinine Ratio 11 Ratio (12-20); Bilirubin,Total 0.6 mg/dL (0.3-1.2); Blood Urea Nitrogen 9 mg/dL (9-23); Calcium 8.9 mg/dL (8.3-10.6); Calcium (Corrected) 9.5 mg/dL (8.5-10.1); Carbon Dioxide 27.9 mMol/L (20.0-31.0); Chloride 104 mMol/L (98-107); Creatinine (Component) 0.8 mg/dL (0.6-1.3); Estimated Creatinine Clearance 121.0 mL/min (>60); Globulin 2.6 gm/dL (2.3-3.5); Glucose 77 mg/dL (74-106); Osmolality,Calculated 278 (275-295); Potassium 4.5 mMol/L (3.4-5.1); Sodium 141 mMol/L (136-145); Total Protein 5.9 gm/dL (5.7-8.2); eGFR > 60 See Note
--- NOTE | 2025-04-11 08:58 | PC.SS ---
Addendum entered by Madeline Hansen 04/11/25 09:34: Per Lynette from patient's health insurance, insurance authorization is still pending and the authorization # is [id number]. Ref# for the this call is [id number]. Original Note: has sent updated inquiry to [facility] and patient's health insurance fax# [phone] (fax# provided by [facility]). SS spoke Lynette to from patient's health insurance who is aware pt is ready for d/c, has faxed d/c orders today,and insurance authorization was submitted on 04-09-25 by [facility]. was informed by Radha at [facility] she has contacted patient's health insurance and authorization is still pending and to expedite authorization..
[2025-04-11] MEDS: METHADONE SOLUTION 1 MG/1 ML 109 MG PO (10:17)
[2025-04-11] MEDS: POLYETHYLENE GLYCOL 17 GM PACKET PO (10:19)
[2025-04-11] MEDS: MULTIVITAMINS TABLET 1 TAB PO (10:20)
[2025-04-11] MEDS: ASCORBIC ACID 250 MG TABLET 500 MG PO ×2 (10:20→20:14)
[2025-04-11] MEDS: FERROUS SULF 325 MG TABLET PO (10:20)
[2025-04-11] MEDS: PANTOPRAZOLE 40 MG TABLET PO (10:21)
[2025-04-11] MEDS: ZINC SULFATE 220 MG CAPSULE PO (10:21)
[2025-04-11] MEDS: METOCLOPRAMIDE 5 MG TABLET 10 MG PO (11:13)
[2025-04-11] MEDS: FERRIC SOD GLUC INJ 125 MG in SODIUM CHLORIDE 0.9% 100 ML 110 MG IV (11:34)
--- NOTE | 2025-04-11 11:43 | PD.RESDS ---
Planned Discharge Date 04/11/25 DS: Providers Provider Date of admission: 04/05/25 02:21 Primary care physician: Physician No Primary/Family Admitting Provider: Amarjit Rivas MD Attending Provider on Admission: Hany Ramirez MD Consults: 04/05/25 01:03 Consult to Gastroenterology Stat Comment: GI bleed Consulting Provider: Shyla Jose 04/05/25 06:00 Health Equity Referral - Transportation Routine Comment: Positive screening for transportation needs. Health Equity Referral - Utilities Routine Comment: Positive screening for utility assistance needs. 04/05/25 06:30 Referral Wound Care Routine Comment: 04/05/25 06:31 Referral Registered Dietitian Routine Comment: 04/05/25 11:22 Referral Physical Therapy Routine Comment: Physician Instructions: Attending Provider on DC: Hany Ramirez MD Discharging Provider: Hany Ramirez MD Hospital Course Hospital Course Hospital course: Discharge Instructions: Please continue to take vitamin C, multivitamin and zinc sulfate for nutritional needs Take Ferrous sulfate (iron supplement) every other day Continue all other home medications as prescribed Please follow-up with your PCP within 1 week of discharge or follow-up at the [facility] [address] [place], [place] [id number] Ask your PCP to follow-up with a CBC as you have some leukopenia that warrants outpatient hematology workup If your symptoms worsen or if you start to develop new chest pain, shortness of breath, severe abdominal pain or bleeding - please come back to the ED immediately Case discussed with my attending Dr. Ramirez, and senior resident, Dr. Barbara Iqbal MD PGY-1 Status at Discharge Overall status at discharge: patient is progressing back to baseline Time Spent with Patient Time attestation: Total time spent providing and/or coordinating discharge services: Time spent: Greater than 30 minutes Exam Vital Signs Temp Pulse Resp BP Pulse Ox O2 Del Method O2 Flow Rate 97.6 F 78 20 134/81 H 96 Room Air 3 04/11/25 08:00 04/11/25 10:20 04/11/25 08:00 04/11/25 10:20 04/11/25 08:00 04/11/25 08:00 04/10/25 16:00 Discharge Plan Plan Patient Disposition: Xfer Skilled Nsg Fac (SNF) Patient condition on transfer: Stable Care Plan Goals: Please continue to take vitamin C, multivitamin and zinc sulfate for nutritional needs Take Ferrous sulfate (iron supplement) every other day Continue all other home medications as prescribed Please follow-up with your PCP within 1 week of discharge or follow-up at the [facility] [address] [place] [address] Ask your PCP to follow-up with a CBC as you have some leukopenia that warrants outpatient hematology workup If your symptoms worsen or if you start to develop new chest pain, shortness of breath, severe abdominal pain or bleeding - please come back to the ED immediately Prescriptions/Referrals Prescriptions/Med Rec: New ascorbic acid (vitamin C) [Vitamin C] 250 mg Tablet 500 mg PO BID 30 Days Qty: 120 0RF multivitamin with folic acid [Tab-A-Bandar] 400 mcg Tablet 1 tab PO QDAY 30 Days Qty: 30 0RF zinc sulfate 50 mg zinc (220 mg) Capsule 220 mg PO QDAY 14 Days Qty: 62 0RF Continued levetiracetam [Keppra] 500 MG tablet 500 mg PO BID Qty: 0 sertraline [Zoloft] 100 MG tablet 150 mg PO HS Qty: 0 omeprazole 20 MG capsule,delayed release(DR/EC) 20 mg PO QDAY Qty: 0 Changed ferrous sulfate, dried 160 mg (50 mg iron) tablet extended release 160 mg PO Q OTHER DAY Qty: 90 0RF Referrals: No Primary/Family,Physician [Primary Care Provider] Outpatient Orders (i.e. Home Health, Labs, Imaging): CBC (Routine) Timeframe: 1 Week Location: None Selected Ordered By: Andrea Jimenez Patient/Caregiver Discharge Instructions Education Materials: Abdominal Pain, Complementary Care for Pain, Communicating About Pain Print Language: Vietnamese Stand Alone Forms: [facility] Award Info., Patient Portal Info Letter MD Attestestation Attestation I reviewed labs, imaging, EKG, home medications and prior available records. Face to face evaluation was performed by me. I have personally examined the patient and discussed assessment and plan with the IM team. I reviewed the resident note and agree with the plan with exceptions as below. Symptomatic anemia Possible GI bleed GERD Migraine headaches Colonoscopy showed hemorrhoids and diverticulosis H&H is stable PT recommended SNF versus home health. 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 Added Reglan Ferrous sulfate upon discharge Outpatient follow-up with GI Accepted to [facility] transitional placement
--- NOTE | 2025-04-11 13:51 | PC.SS ---
SS spoke to Muna from patient's health insurance who states pt has been approved but is now waiting for their coordinator to verify if [facility] is contracted to generate the authorization.
--- NOTE | 2025-04-11 19:36 | ESPR_ITS ---
Documentation for date of: 04/11/25 Subjective Subjective Interval history: Seen and examined at bedside. No acute overnight events. Labs and vitals stable, hemoglobin stable. Patient has GERD sx. Migranes, gave sumatriptan, reglan and benadryl x1. IV Iron 125mg x1 given. Patient will be discharged on Iron 325mg every other day. Exam Vital Signs Temp Pulse Resp BP Pulse Ox O2 Del Method O2 Flow Rate 97 F 76 17 113/72 93 L Room Air 3 04/11/25 16:00 04/11/25 16:00 04/11/25 16:00 04/11/25 16:00 04/11/25 16:00 04/11/25 16:00 04/10/25 16:00 Narrative Exam GENERAL: NAD, AAOx3, morbidly obese HEENT: Moist mucosa. EOMI. Neck supple. No ear discharge. Oral mucosa clear. CARDIO: Regular rate and rhythm. S1 + S2. No Murmurs. Euvolemic. JVP not elevated. PULM: Good air entry bilaterally. No wheezes/crackles. GI: Abdomen soft, nondistended, Tenderness on palpation of suprapubic. SKIN/MSK/EXT: Pale. No wounds/rashes/amputations, no pain on palpation. Noonpitting edema on B/L legs upto thighs. Pedal pulses present B/L. NEURO: AAOx3, no focal neuro deficits, able to move all 4 extremities. PSYCH: Coherent thoughts, no flight of ideas Objective Labs 04/12/25 04:52 04/12/25 04:52 Labs: Laboratory Results - last 24 hr 04/11/25 04:40 WBC 4.2 RBC 3.60 L Hgb 9.7 L Hct 31.9 L MCV 89 MCH 26.9 MCHC 30.4 L RDW Std Deviation 53.3 H Plt Count 244 Neut % (Auto) 56 Lymph % (Auto) 32 [place] % (Auto) 9 Eos % (Auto) 2 Baso % (Auto) 1 Neut # (Auto) 2.3 Lymph # (Auto) 1.3 [place] # (Auto) 0.4 Eos # (Auto) 0.1 Baso # (Auto) 0.0 Immature Gran # (Auto) 0.01 H Absolute Nucleated RBC 0.00 Immature Gran % 0 Nucleated RBC % 0 Sodium 141 Potassium 4.5 D Chloride 104 Carbon Dioxide 27.9 Anion Gap 9 BUN 9 Creatinine 0.8 Estim Creat Clear Calc 121.0 eGFR > 60 BUN/Creatinine Ratio 11 L Glucose 77 Calculated Osmolality 278 Calcium 8.9 Corrected Calcium 9.5 Total Bilirubin 0.6 AST 18 ALT < 7 L Alkaline Phosphatase 97 Total Protein 5.9 Albumin 3.3 L Globulin 2.6 Albumin/Globulin Ratio 1.3 ABG Interpretation ABG results: 04/04/25 20:25 VBG pH 7.43 VBG pCO2 39 VBG pO2 37 VBG Base Excess 1 Quality Measures Quality Measures VTE prophylaxis Assessment & Plan Assessment Current Active Medications: Generic Name Dose Route Start Last Admin Trade Name Freq PRN Reason Stop Dose Admin Acetaminophen 650 mg 04/05/25 02:26 04/09/25 17:02 Acetaminophen 325 Mg Tablet PO 05/05/25 02:25 650 mg Q6H PRN Administration Fever >100.4 Acetaminophen 650 mg 04/05/25 02:26 Acetaminophen 325 Mg Tablet PO 05/05/25 02:25 On Hold: 04/06/25 08:42 Q6H PRN Comment: DILAUDID IV ACTIVE. PAIN SCALE 1-3 (mild Amlodipine Besylate 5 mg 04/08/25 09:00 04/11/25 10:20 Amlodipine Besylate 2.5 Mg Tablet PO 05/08/25 08:59 5 mg QDAY DREW Administration Ascorbic Acid 500 mg 04/06/25 14:30 04/11/25 10:20 Ascorbic Acid 250 Mg Tablet PO 05/06/25 14:29 500 mg BID DREW Administration Cyclobenzaprine HCl 10 mg 04/09/25 13:28 04/11/25 10:20 Cyclobenzaprine 5 Mg Tablet PO 05/09/25 13:27 10 mg BID PRN Administration MUSCLE SPASMS Ferrous Sulfate 325 mg 04/12/25 09:00 Ferrous Sulf 325 Mg Tablet PO 05/12/25 08:59 QDAY DREW Levetiracetam 500 mg 04/05/25 09:00 04/11/25 10:20 Levetiracetam 250 Mg Tablet PO 05/05/25 08:59 500 mg BID DREW Administration Methadone HCl 109 mg 04/09/25 09:00 04/11/25 10:17 Methadone Solution 1 Mg/1 Ml PO 04/14/25 08:59 109 mg QDAY DREW Administration Multivitamins 1 tab 04/06/25 14:30 04/11/25 10:20 Multivitamins Tablet PO 05/06/25 14:29 1 tab QDAY DREW Administration Ondansetron HCl 4 mg 04/05/25 02:26 04/09/25 10:55 Ondansetron Inj 2 Mg/Ml Inj 2 Ml IVP 05/05/25 02:25 4 mg Q6H PRN Administration NAUSEA OR VOMITING Protocol Pantoprazole Sodium 40 mg 04/10/25 09:00 04/11/25 10:21 Pantoprazole 40 Mg Tablet PO 05/10/25 08:59 40 mg QDAY DREW Administration Polyethylene Glycol 17 gm 04/05/25 14:30 04/11/25 10:19 Polyethylene Glycol 17 Gm Packet PO 05/05/25 14:29 17 gm QDAY DREW Administration Sennosides 1 tab 04/05/25 14:30 04/11/25 10:19 Senna Tablet PO 05/05/25 14:29 1 tab QDAY DREW Administration Protocol Sertraline HCl 150 mg 04/05/25 21:00 04/10/25 20:03 Sertraline Hcl 25 Mg Tablet PO 05/05/25 20:59 150 mg HS DREW Administration Zinc Sulfate 220 mg 04/06/25 14:30 04/11/25 10:21 Zinc Sulfate 220 Mg Capsule PO 04/20/25 14:29 220 mg QDAY DREW Administration Plan 45 year old female with past medical history of gastric sleeve surgery, 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 She was admitted for symptomatic anemia. #GI bleed #Symptomatic anemia, resolved Lower GI bleed DDx: Diverticular disease, Hemorroids/Anal Fissures/ Colitis/Angiodysplasia Shortness of breath on exertion, bilateral leg swelling, melena, hematemesis for the last 3 months Blood smear sent to pathology Patient received 2 units of PRBC given in ED for hemoglobin of 6.2 BNP negative, euvolemic, no JVP elevation - less likely new dx of CHF EGD performed 04/05 unremarkable no sources of bleeding identified Colonoscopy 04/08 showed hemorrhoids and diverticulosis, but no diverticular bleeding Plan: ?Gastroenterology consulted, Dr. Jose, see recs #Migraine Headache occurred 04/11 Plan - Benadryl 25mg x1 - Reglan 10mg x1 - Sumatriptan 25mg x1 #History of chronic hip pain Patient is on methadone 109 mg daily and gets it refilled every 2 weeks at the pain clinic Plan: ? Restarted patient's home methadone ? Discontinued all other pain medications #Bilateral nonobstructing renal calculi Multiple renal calculi less than 5 mm. ~1-3mm found on abdominal CT ? Follow-up outpatient for further evaluation #Seizure Disorder - Continue Keppra home dose 500 mg twice daily #Anxiety/depression - Continue sertraline home dose 150 mg daily Health maintenance: Code status: Full DVT prophylaxis: SCD GI ppx: Protonix 40mg qday Diet: reg diet Disposition: Med tele. Case discussed with my attending Dr. Ramirez, and senior resident, Dr. Barbara Iqbal MD PGY-1 Attending Provider Attestation/Addendum I reviewed labs, imaging, EKG, home medications and prior available records. Face to face evaluation was performed by me. I have personally examined the patient and discussed assessment and plan with the IM team. I reviewed the resident note and agree with the plan with exceptions as below. Symptomatic anemia Possible GI bleed GERD Migraine headaches Colonoscopy showed hemorrhoids and diverticulosis H&H is stable PT recommended SNF versus home health. 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 Gave Reglan and sumatriptan Pending [facility] transitional placement
[2025-04-11] MEDS: SERTRALINE HCL 25 MG TABLET 150 MG PO (20:15)
--- NOTE | 2025-04-11 20:44 | PD.IMPROG ---
Documentation for date of: 04/11/25 Subjective Subjective Interval history: Started on iron sulfate along with vitamin C along with orange juice in the setting of anemia due to Gastric bariatric procedure Exam Vital Signs Temp Pulse Resp BP Pulse Ox O2 Del Method O2 Flow Rate 96.9 F 87 16 134/83 H 95 Room Air 3 04/11/25 20:00 04/11/25 20:00 04/11/25 20:00 04/11/25 20:00 04/11/25 20:00 04/11/25 20:00 04/10/25 16:00 Objective Labs 04/11/25 04:40 04/11/25 04:40 Labs: Laboratory Results - last 24 hr 04/11/25 04:40 WBC 4.2 RBC 3.60 L Hgb 9.7 L Hct 31.9 L MCV 89 MCH 26.9 MCHC 30.4 L RDW Std Deviation 53.3 H Plt Count 244 Neut % (Auto) 56 Lymph % (Auto) 32 [place] % (Auto) 9 Eos % (Auto) 2 Baso % (Auto) 1 Neut # (Auto) 2.3 Lymph # (Auto) 1.3 [place] # (Auto) 0.4 Eos # (Auto) 0.1 Baso # (Auto) 0.0 Immature Gran # (Auto) 0.01 H Absolute Nucleated RBC 0.00 Immature Gran % 0 Nucleated RBC % 0 Sodium 141 Potassium 4.5 D Chloride 104 Carbon Dioxide 27.9 Anion Gap 9 BUN 9 Creatinine 0.8 Estim Creat Clear Calc 121.0 eGFR > 60 BUN/Creatinine Ratio 11 L Glucose 77 Calculated Osmolality 278 Calcium 8.9 Corrected Calcium 9.5 Total Bilirubin 0.6 AST 18 ALT < 7 L Alkaline Phosphatase 97 Total Protein 5.9 Albumin 3.3 L Globulin 2.6 Albumin/Globulin Ratio 1.3 Impressions Impression: 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
[2025-04-11] MEDS: ACETAMINOPHEN 325 MG TABLET 650 MG PO (23:59)
[2025-04-12] VITALS: PULSE 92
--- NOTE | 2025-04-12 | PC.NURSE ---
okay to give Tylenol for headache per dr Mason.
--- NOTE | 2025-04-12 00:01 | PC.NURSE ---
Pt complaining of migraine pain, Dr. Mason was made aware, will put orders for pt.
[2025-04-12 04:00] VITALS: BP 144/83; PULSE 77; PULSE 82; RESP 16; TEMP 36.2; O2SAT 92
[2025-04-12 05:43] LABS: Basophils # (Auto) 0.0 Thou/mm3 (0.0-0.2); Basophils % (Auto) 1 % (0-2.5); Eosinophils # (Auto) 0.1 Thou/mm3 (0.0-0.5); Eosinophils % (Auto) 2 % (0-10); Hematocrit 28.2 % (36.0-46.0); Immature Granulocytes Auto 0.00 Thou/mm3 (0.00-0.00); Lymphocytes # (Auto) 1.1 Thou/mm3 (1.0-4.8); Lymphocytes % (Auto) 29 % (10-50); Mean Corpuscular HGB Conc 31.2 g/dl (31.0-37.0); Mean Corpuscular Hemoglobin 26.9 pg (25.0-35.0); Mean Corpuscular Volume 86 fL (80-100); Monocytes # (Auto) 0.3 Thou/mm3 (0.0-0.8); Monocytes % (Auto) 7 % (0-12); Neutrophils # (Auto) 2.3 Thou/mm3 (1.8-7.7); Neutrophils % (Auto) 61 % (37-80); Nucleated Red Blood Cell # 0.00 Thou/mm3 (0.00-0.00); Nucleated Red Blood Cell % 0 /100 WBC (0); Platelet Count 217 Thou/mm3 (140-440); RDW Standard Deviation 52.8 fL (36.4-46.3); Red Blood Count 3.27 Miln/mm3 (4.00-5.20); White Blood Count 3.8 Thou/mm3 (3.6-11.0)
[2025-04-12 05:45] LABS: Hemoglobin 8.8 g/dL (12.0-16.0)
[2025-04-12 05:57] LABS: Alanine Aminotransferase 10 U/L (10-49); Albumin, Serum 3.1 gm/dL (3.5-5.0); Albumin/Globulin Ratio 1.2 (1.2-2.2); Alkaline Phosphatase 94 U/L (46-116); Anion Gap 7 (7-16); Aspartate Amino Transferase 30 U/L (0-34); BUN/Creatinine Ratio 13 Ratio (12-20); Bilirubin,Total 0.8 mg/dL (0.3-1.2); Blood Urea Nitrogen 10 mg/dL (9-23); Calcium 8.6 mg/dL (8.3-10.6); Calcium (Corrected) 9.3 mg/dL (8.5-10.1); Carbon Dioxide 29.8 mMol/L (20.0-31.0); Chloride 103 mMol/L (98-107); Creatinine (Component) 0.8 mg/dL (0.6-1.3); Estimated Creatinine Clearance 121.0 mL/min (>60); Globulin 2.5 gm/dL (2.3-3.5); Glucose 74 mg/dL (74-106); Osmolality,Calculated 277 (275-295); Potassium 4.4 mMol/L (3.4-5.1); Sodium 140 mMol/L (136-145); Total Protein 5.6 gm/dL (5.7-8.2); eGFR > 60 See Note
[2025-04-12 08:00] VITALS: BP 104/66; PULSE 75; RESP 23; TEMP 36.8; O2SAT 94
[2025-04-12 09:39] VITALS: BP 104/66; PULSE 75
[2025-04-12] MEDS: MULTIVITAMINS TABLET 1 TAB PO (09:39)
[2025-04-12] MEDS: PANTOPRAZOLE 40 MG TABLET PO (09:39)
[2025-04-12] MEDS: ZINC SULFATE 220 MG CAPSULE PO (09:39)
[2025-04-12] MEDS: FERROUS SULF 325 MG TABLET PO (09:40)
[2025-04-12] MEDS: ASCORBIC ACID 250 MG TABLET 500 MG PO (09:40)
[2025-04-12] MEDS: METHADONE SOLUTION 1 MG/1 ML 109 MG PO (09:41)
--- NOTE | 2025-04-12 09:57 | PD.RESDS ---
Planned Discharge Date 04/12/25 DS: Providers Provider Date of admission: 04/05/25 02:21 Primary care physician: Physician No Primary/Family Admitting Provider: Amarjit Rivas MD Attending Provider on Admission: Hany Ramirez MD Consults: 04/05/25 01:03 Consult to Gastroenterology Stat Comment: GI bleed Consulting Provider: Shyla Jose 04/05/25 06:00 [facility] Referral - Transportation Routine Comment: Positive screening for transportation needs. [facility] Referral - Utilities Routine Comment: Positive screening for utility assistance needs. 04/05/25 06:30 Referral Wound Care Routine Comment: 04/05/25 06:31 Referral Registered Dietitian Routine Comment: 04/05/25 11:22 Referral Physical Therapy Routine Comment: Physician Instructions: Attending Provider on DC: Anil Do MD Discharging Provider: Anil Do MD DS: Diagnosis Problem List Completed Was Problem List Reviewed/Reconciled?: Yes Hospital Course Hospital Course Hospital course: 45 year old female with past medical history of gastric sleeve surgery, 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 She was admitted for symptomatic anemia. ED course: Initial vitals included BP 135/76 OH 89 resp 20 temperature 97.9 saturating 99% on room air. Pertinent labs were hemoglobin 6.2 hematocrit 20.4 total protein 5.[address] abdomen shows numerous bilateral nonobstructing renal calculi, EKG shows normal sinus rhythm. Venous Doppler and chest CTA were unremarkable. Hospital course: The patient was admitted for symptomatic anemia and received two units of packed red blood cells, which resulted in the resolution of her symptoms. A GI workup was initiated, with upper endoscopy on 04/05 proving unremarkable and a colonoscopy on 04/08 identifying only non-bleeding hemorrhoids and diverticulosis, ruling out an active GI source of blood loss. 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 At discharge, the patient's symptomatic anemia had resolved, and she was instructed to continue oral iron supplementation every other day, along with Vitamin C to enhance iron absorption. Discharge instructions: - Please continue to take vitamin C, multivitamin and zinc sulfate for nutritional needs - Take Ferrous sulfate (iron supplement) every other day - Continue all other home medications as prescribed - Please follow-up with your PCP within 1 week of discharge or follow-up at the [facility] [address] [place], [place] [id number] - Ask your PCP to refer you to a headache specialist for persistent migraine symptoms - If your symptoms worsen or if you start to develop new chest pain, shortness of breath, severe abdominal pain or bleeding - please come back to the ED immediately Admission diagnoses: #GI bleed, ruled out #Symptomatic anemia, resolved #Migraine #History of chronic hip pain #Bilateral nonobstructing renal calculi #Seizure Disorder #Anxiety/depression Case discussed with my attending Dr. Do, and senior resident, Dr. Barbara Iqbal MD PGY-1 Status at Discharge Overall status at discharge: patient is progressing back to baseline Time Spent with Patient Time attestation: Total time spent providing and/or coordinating discharge services: Time spent: Greater than 30 minutes Exam Vital Signs Temp Pulse Resp BP Pulse Ox O2 Del Method O2 Flow Rate 98.3 F 75 23 H 104/66 94 L Room Air 3 04/12/25 08:00 04/12/25 09:39 04/12/25 08:00 04/12/25 09:39 04/12/25 08:00 04/12/25 08:00 04/10/25 16:00 Narrative Exam GENERAL: NAD, AAOx3, morbidly obese HEENT: Moist mucosa. EOMI. Neck supple. No ear discharge. Oral mucosa clear. CARDIO: Regular rate and rhythm. S1 + S2. No Murmurs. Euvolemic. JVP not elevated. PULM: Good air entry bilaterally. No wheezes/crackles. GI: Abdomen soft, nondistended, Tenderness on palpation of suprapubic. SKIN/MSK/EXT: Pale. No wounds/rashes/amputations, no pain on palpation. Noonpitting edema on B/L legs upto thighs. Pedal pulses present B/L. NEURO: AAOx3, no focal neuro deficits, able to move all 4 extremities. PSYCH: Coherent thoughts, no flight of ideas Discharge Plan Plan Patient Disposition: Xfer Skilled Nsg Fac (SNF) Patient condition on transfer: Stable Care Plan Goals: Please continue to take vitamin C, multivitamin and zinc sulfate for nutritional needs Take Ferrous sulfate (iron supplement) every other day Continue all other home medications as prescribed Please follow-up with your PCP within 1 week of discharge or follow-up at the [facility] [address] [place] [address] Ask your PCP to refer you to a headache specialist for persistent migraine symptoms If your symptoms worsen or if you start to develop new chest pain, shortness of breath, severe abdominal pain or bleeding - please come back to the ED immediately Prescriptions/Referrals Prescriptions/Med Rec: New ascorbic acid (vitamin C) [Vitamin C] 250 mg Tablet 500 mg PO BID 30 Days Qty: 120 0RF multivitamin with folic acid [Tab-A-Bandar] 400 mcg Tablet 1 tab PO QDAY 30 Days Qty: 30 0RF zinc sulfate 50 mg zinc (220 mg) Capsule 220 mg PO QDAY 14 Days Qty: 62 0RF Continued levetiracetam [Keppra] 500 MG tablet 500 mg PO BID Qty: 0 sertraline [Zoloft] 100 MG tablet 150 mg PO HS Qty: 0 omeprazole 20 MG capsule,delayed release(DR/EC) 20 mg PO QDAY Qty: 0 Changed ferrous sulfate, dried 160 mg (50 mg iron) tablet extended release 160 mg PO Q OTHER DAY Qty: 90 0RF Referrals: No Primary/Family,Physician [Primary Care Provider] Patient/Caregiver Discharge Instructions Education Materials: Abdominal Pain, Complementary Care for Pain, Communicating About Pain Print Language: Uzbek Stand Alone Forms: [facility] Award Info., Patient Portal Info Letter Discharge Order Discharge Orders: Discharge (Routine); Ordered 04/12/25 Ordered By: Gregory Iqbal Quality Discharge Quality Measures VTE prophylaxis Attestestation Attestation I have examined the patient, reviewed labs and imaging findings, discussed the case with the resident(s), and reviewed entered orders. I agree with the plan of care as outlined in this note. Time Spent: [address] Hi MD
--- NOTE | 2025-04-12 11:29 | PC.SS ---
Addendum entered by Michell Horner 04/12/25 12:03: ETA set for 1430 Addendum entered by Michell Horner 04/12/25 11:34: Sent PCS and Facesheet to [facility] via [employer] pending response Original Note: SS sent updated clinicals to [facility] via [employer]. [employer] setup #[id number]. Pending release to transport company. SS requested 1430 pickup.
[2025-04-12 11:55] VITALS: BP 104/69; PULSE 75; RESP 15; TEMP 36.8; O2SAT 93
[2025-04-12 12:00] VITALS: PULSE 86
--- NOTE | 2025-04-12 23:08 | PD.IMPROG ---
Documentation for date of: 04/12/25 Subjective Subjective Interval history: Late entry for the note Hemoglobin hematocrit 8.8 and 28.2 patient to be going home with ferrous sulfate 325 mg p.o. twice daily along with vitamin C 500 mg twice daily to be taken together with a glass of orange juice daily Patient can be followed by PCP Exam Vital Signs Temp Pulse Resp BP Pulse Ox O2 Del Method O2 Flow Rate 98.2 F 86 15 104/69 93 L Room Air 3 04/12/25 11:55 04/12/25 12:00 04/12/25 11:55 04/12/25 11:55 04/12/25 11:55 04/12/25 11:55 04/10/25 16:00 Objective Labs 04/12/25 04:52 04/12/25 04:52 Labs: Laboratory Results - last 24 hr 04/12/25 04:52 WBC 3.8 RBC 3.27 L Hgb 8.8 L Hct 28.2 L MCV 86 MCH 26.9 MCHC 31.2 RDW Std Deviation 52.8 H Plt Count 217 Neut % (Auto) 61 Lymph % (Auto) 29 [place] % (Auto) 7 Eos % (Auto) 2 Baso % (Auto) 1 Neut # (Auto) 2.3 Lymph # (Auto) 1.1 [place] # (Auto) 0.3 Eos # (Auto) 0.1 Baso # (Auto) 0.0 Immature Gran # (Auto) 0.00 Absolute Nucleated RBC 0.00 Immature Gran % 0 Nucleated RBC % 0 Sodium 140 Potassium 4.4 Chloride 103 Carbon Dioxide 29.8 Anion Gap 7 BUN 10 Creatinine 0.8 Estim Creat Clear Calc 121.0 eGFR > 60 BUN/Creatinine Ratio 13 Glucose 74 Calculated Osmolality 277 Calcium 8.6 Corrected Calcium 9.3 Total Bilirubin 0.8 AST 30 ALT 10 Alkaline Phosphatase 94 Total Protein 5.6 L Albumin 3.1 L Globulin 2.5 Albumin/Globulin Ratio 1.2 Impressions Impression: Status post Mariposa-en-Y gastrojejunostomy most likely the cause of her anemia Plan As under HPI ABG Interpretation ABG results: 04/04/25 20:25 VBG pH 7.43 VBG pCO2 39 VBG pO2 37 VBG Base Excess 1 Assessment & Plan Time Spent With Patient Time: Total time spent is greater than 50% in coordination of care (as documented) at patient's floor/unit and/or counseling patient:
== END 2025-04-12 15:40 | disposition skilled nursing facility (03) | DRG 244 ==
LOC: SERX 04-05 01:17 → SERHOLD 04-05 02:56 → S3NX 04-05 05:05
PROVIDERS: Specialist; Admitting Provider Internal Medicine; Emergency Provider Emergency Medicine; Visit Provider Student in an Organized Health Care Education/Training Program
PROC: (CPT 43239; principal; 2025-04-05 20:30)
PROC: 0DJD8ZZ Inspection of Lower Intestinal Tract, Via Natural or Artificial Opening Endoscopic (ICD-10-PCS; CPT 45378; principal; 2025-04-08 16:45)
DX: K57.31 Diverticulosis of large intestine without perforation or abscess with bleeding (principal); N20.0 Calculus of kidney; Z98.84 Bariatric surgery status; F32.A Depression, unspecified; D50.0 Iron deficiency anemia secondary to blood loss (chronic); F41.9 Anxiety disorder, unspecified; G40.909 Epilepsy, unspecified, not intractable, without status epilepticus; G43.909 Migraine, unspecified, not intractable, without status migrainosus; G89.29 Other chronic pain; Z53.20 Procedure and treatment not carried out because of patient's decision for unspecified reasons; Z66 Do not resuscitate; K90.9 Intestinal malabsorption, unspecified; K21.9 Gastro-esophageal reflux disease without esophagitis; K64.8 Other hemorrhoids; K29.70 Gastritis, unspecified, without bleeding; Z79.891 Long term (current) use of opiate analgesic; Z90.49 Acquired absence of other specified parts of digestive tract; Z88.2 Allergy status to sulfonamides; Z88.6 Allergy status to analgesic agent; W19.XXXA Unspecified fall, initial encounter
CPT/HCPCS: 36415; 36430; 71045; 71275; 72020; 74177; 80053; 80061; 81001; 82248; 82550; 82803; 83690; 83735; 83880; 84100; 84443; 84484; 84703; 85014; 85018; 85025; 85379; 85610; 86850; 86900; 86901; 86923; 87502; 87811; 93005; 93225; 93306; 93970; 96361; 96374; 96375; 96376; 97162; 99285; A4314; A4649; J0131; J0456; J0696; J1171; J1200; J1938; J2175; J2250; J2270; J2405; J2470; J2916; J3010; J3490; J7050; J7121; J7999; P9016; Q9967; A9270